=== PATIENT | male | born 1980 | race Caucasian/White ===

== ENCOUNTER 2022-10-22 10:57 | Outpatient (RCR) | payer OTHER, SELFPAY | END 2022-12-04 16:06 | disposition home or self-care (01) | LOC: PT 10:57 | PROVIDERS: PCP Podiatrist Foot & Ankle Surgery; Visit Provider Podiatrist Foot & Ankle Surgery | DX: M76.71 Peroneal tendinitis, right leg (principal); S86.311D Strain of muscle(s) and tendon(s) of peroneal muscle group at lower leg level, right leg, subsequent encounter; S93.491D Sprain of other ligament of right ankle, subsequent encounter | CPT/HCPCS: 20561; 97110; 97140 ==

== ENCOUNTER 2022-12-09 13:42 | Outpatient (OUT) | payer OTHER, SELFPAY ==
--- NOTE | 2022-12-09 13:46 | XR_ITS ---
The [address] [address] Patient Name: NELY KLEIN MRN: [id number] date: 1980 Sex: M Assigned Patient Location: [facility] Current Patient Location: [facility] Accession/Order Number: [id number] Exam Date: 12/09/2022 13:46 Report Date: 12/09/2022 14:28 At the request of: TRINY SOTO Procedure: XR ankle RT min 3V PROCEDURE: XR ankle RT min 3V DATE: 12/09/2022 12:46 PM CDT COMPARISONS: 06/16/2021 CLINICAL INDICATION: RIGHT ANKLE PAIN FINDINGS: There is no evidence of fractures or other acute osseous abnormalities. There is a 2 mm corticated ossific density distal to the medial malleolus likely related to old trauma or accessory ossicle. The ankle mortise is intact. No evidence of ankle joint effusion. XR/XR ankle RT min 3V IMPRESSION: Right ankle radiographs show no evidence of acute abnormalities. Electronically authenticated by: SINA TRIVEDI Date: 12/09/2022 14:28
--- NOTE | 2022-12-09 14:00 | XR_ITS ---
The [address] [address] Patient Name: NELY KLEIN MRN: [id number] date: 1980 Sex: M Assigned Patient Location: [facility] Current Patient Location: [facility] Accession/Order Number: [id number] Exam Date: 12/09/2022 14:00 Report Date: 12/09/2022 14:31 At the request of: TRINY SOTO Procedure: XR foot RT min 3V PROCEDURE: XR foot RT min 3V DATE: 12/09/2022 1:00 PM CDT COMPARISONS: Reference is made to right ankle radiographs done the same day and right ankle radiographs done on 06/16/2021. CLINICAL INDICATION: RIGHT FOOT PAIN FINDINGS: There is no evidence of fractures or other acute osseous abnormalities. There is spurring off the posterior os calcis at the attachment of the Achilles is a small spur off the posterior inferior os calcis There is some old deformity of the fifth proximal phalanx. There is slight soft tissue swelling about the foot and ankle. There is a marker over the lateral hindfoot. No definite abnormality seen in this area. There is a subtle 7 mm ossific density. This is of unclear etiology. It could represent an accessory ossicle. No radiopaque foreign bodies identified. XR/XR foot RT min 3V IMPRESSION: Right foot radiographs show no evidence of acute abnormalities. Electronically authenticated by: SINA TRIVEDI Date: 12/09/2022 14:31
== END 2022-12-09 13:43 | disposition home or self-care (01) ==
LOC: RAD 13:43
PROVIDERS: PCP Podiatrist Foot & Ankle Surgery; Visit Provider Podiatrist Foot & Ankle Surgery
DX: S93.491A Sprain of other ligament of right ankle, initial encounter (principal); M76.71 Peroneal tendinitis, right leg
CPT/HCPCS: 73610; 73630

== ENCOUNTER 2023-04-23 11:11 | Outpatient (OUT) | payer SELFPAY ==
--- NOTE | 2023-04-23 | XR_ITS ---
The [address] [address] Patient Name: NELY KLEIN MRN: [id number] date: 1980 Sex: M Assigned Patient Location: [facility] Current Patient Location: Accession/Order Number: [id number] Exam Date: 04/23/2023 11:17 Report Date: 04/24/2023 07:42 At the request of: TRINY SOTO Procedure: XR foot LT min 3V PROCEDURE: XR foot LT min 3V HISTORY: LEFT FOOT PAIN ; new left heel and lateral foot pain COMPARISON: None. FINDINGS: BONES:Prominent degenerative enthesophyte at Achilles tendon insertion into the calcaneus. Degenerative spurring along margin of posterior process of talus and posterior articular surface with the calcaneus. SOFT TISSUES:No visible soft tissue swelling. EFFUSION:None visible. OTHER: Negative. XR/XR foot LT min 3V IMPRESSION: 1. No appreciable acute findings to account for patient's symptoms. 2. Mild degenerative changes detailed above. Electronically authenticated by: CHRISTINE VELARDE Date: 04/24/2023 07:42
== END 2023-04-23 11:12 | disposition home or self-care (01) ==
LOC: RAD 11:11
PROVIDERS: Visit Provider Podiatrist Foot & Ankle Surgery
DX: M79.672 Pain in left foot (principal)
CPT/HCPCS: 73630

== ENCOUNTER 2023-07-05 16:21 | Outpatient (OUT) | payer OTHER, SELFPAY | END 2023-07-05 16:22 | disposition home or self-care (01) | LOC: SLEEP 16:22 | PROVIDERS: PCP Nurse Practitioner Family; Visit Provider Nurse Practitioner Family | DX: G47.33 Obstructive sleep apnea (adult) (pediatric) (principal) | CPT/HCPCS: 95806 ==

== ENCOUNTER 2023-07-20 11:15 | Outpatient (OUT) | payer OTHER, SELFPAY ==
--- NOTE | 2023-07-20 | XR_ITS ---
[address] [address] Patient Name: NELY KLEIN MRN: [id number] date: 1980 Sex: M Assigned Patient Location: Current Patient Location: Accession/Order Number: [id number] Exam Date: 07/20/2023 11:20 Report Date: 07/20/2023 12:09 At the request of: TRINY SOTO Procedure: XR ankle SHERIN min 3V EXAMINATION: XR ankle SHERIN min 3V, XR foot SHERIN min 3V HISTORY: BILATERAL ANKLE PAIN COMPARISON: 04/23/2023 FINDINGS: RIGHT FINDINGS: BONES: No acute fracture or dislocation. Bulky enthesopathic spurring of the calcaneus at the Achilles insertion. SOFT TISSUES: Mild bimalleolar soft tissue swelling OTHER: Negative. LEFT FINDINGS: BONES: No acute fracture or dislocation. Bulky enthesopathic spurring of the calcaneus at the Achilles insertion. Osteoarthritis posterior talocalcaneal facet SOFT TISSUES: Mild bimalleolar soft tissue swelling OTHER: Negative. XR/XR ankle SHERIN min 3V IMPRESSION: RIGHT CONCLUSION: Degenerative changes LEFT CONCLUSION: Degenerative changes Electronically authenticated by: DEBBIE OBREGON Date: 07/20/2023 12:09
--- NOTE | 2023-07-20 | XR_ITS ---
[address] [address] Patient Name: NELY KLEIN MRN: [id number] date: 1980 Sex: M Assigned Patient Location: Current Patient Location: Accession/Order Number: [id number] Exam Date: 07/20/2023 11:20 Report Date: 07/20/2023 12:09 At the request of: TRINY SOTO Procedure: XR foot SHERIN min 3V EXAMINATION: XR ankle SHERIN min 3V, XR foot SHERIN min 3V HISTORY: BILATERAL ANKLE PAIN COMPARISON: 04/23/2023 FINDINGS: RIGHT FINDINGS: BONES: No acute fracture or dislocation. Bulky enthesopathic spurring of the calcaneus at the Achilles insertion. SOFT TISSUES: Mild bimalleolar soft tissue swelling OTHER: Negative. LEFT FINDINGS: BONES: No acute fracture or dislocation. Bulky enthesopathic spurring of the calcaneus at the Achilles insertion. Osteoarthritis posterior talocalcaneal facet SOFT TISSUES: Mild bimalleolar soft tissue swelling OTHER: Negative. XR/XR foot SHERIN min 3V IMPRESSION: RIGHT CONCLUSION: Degenerative changes LEFT CONCLUSION: Degenerative changes Electronically authenticated by: DEBBIE OBREGON Date: 07/20/2023 12:09
== END 2023-07-20 11:16 | disposition home or self-care (01) ==
LOC: EC 11:15
PROVIDERS: PCP Nurse Practitioner Family; Visit Provider Podiatrist Foot & Ankle Surgery
DX: M76.71 Peroneal tendinitis, right leg (principal); M21.172 Varus deformity, not elsewhere classified, left ankle; M79.672 Pain in left foot; M79.671 Pain in right foot
CPT/HCPCS: 73610; 73630

== ENCOUNTER 2023-10-07 13:22 | Outpatient (OUT) | payer OTHER, SELFPAY ==
--- NOTE | 2023-10-07 13:30 | MR_ITS ---
The [address] [address] Patient Name: NELY KLEIN MRN: [id number] date: 1980 Sex: M Assigned Patient Location: MRI Current Patient Location: MRI Accession/Order Number: [id number] Exam Date: 10/07/2023 13:50 Report Date: 10/07/2023 15:40 At the request of: TRINY SOTO Procedure: MR ankle LT wo con MR ankle LT wo con, 10/07/2023 1:50 PM EDT INDICATION: Peroneal Tendon Rupture Left COMPARISON: X-ray of the bilateral ankles dated 07/20/2023 TECHNIQUE: Multiplanar and multisequential MR images of the were obtained without contrast . FINDINGS: Muscles and tendons: The flexor and extensor tendons and muscles are unremarkable. No abnormality of the peroneus brevis is noted. There is a longitudinal tear within the prognosis longus at the level of peroneal tubercle. There is thickening of the Achilles tendon is insertion to the calcaneus measuring 1.1 cm consistent with partial tear. Bone: There is no bone marrow edema. No osseus lesion is noted. Moderate degenerative changes in the posterior talocalcaneal joint are noted. Sinus Tarsi: No abnormality of sinus Tarsi is noted. Plantar fascia: The plantar fascia is unremarkable. Ligaments: The deep and superficial portions of deltoid are unremarkable. The lateral ligaments are unremarkable. The visualized portion of Lisfranc ligament is unremarkable. There is normal intra-articular joint effusion. No soft tissue abnormality is noted. MR/MR ankle LT wo con IMPRESSION: Longitudinal tear of the left peroneus longus at the level of peroneal tubercle. Low-grade partial tear of the distal Achilles tendon. Electronically authenticated by: MARIELY TIERNEY Date: 10/07/2023 15:40
== END 2023-10-07 13:23 | disposition home or self-care (01) ==
LOC: MRI 13:22
PROVIDERS: PCP Nurse Practitioner Family; Visit Provider Podiatrist Foot & Ankle Surgery
DX: S96.812A Strain of other specified muscles and tendons at ankle and foot level, left foot, initial encounter (principal)
CPT/HCPCS: 73721

== ENCOUNTER 2023-12-29 07:03 | Outpatient (RCR) | payer OTHER, SELFPAY | END 2024-01-18 12:20 | disposition home or self-care (01) | LOC: PT 07:03 | PROVIDERS: PCP Nurse Practitioner Family; Visit Provider Podiatrist Foot & Ankle Surgery | DX: M76.71 Peroneal tendinitis, right leg (principal); R26.2 Difficulty in walking, not elsewhere classified; M76.62 Achilles tendinitis, left leg; M77.32 Calcaneal spur, left foot; M77.52 Other enthesopathy of left foot and ankle | CPT/HCPCS: 97026; 97110; 97140; 97163 ==

== ENCOUNTER 2024-06-28 13:30 | Outpatient (OUT) | payer OTHER, SELFPAY ==
--- NOTE | 2024-06-28 13:35 | XR_ITS ---
The [address] [address] Patient Name: NELY KLEIN MRN: [id number] date: 1980 Sex: M Assigned Patient Location: [facility] Current Patient Location: [facility] Accession/Order Number: [id number] Exam Date: 06/28/2024 13:45 Report Date: 06/28/2024 16:09 At the request of: TRINY SOTO Procedure: XR foot SHERIN min 3V EXAMINATION: XR foot SHERIN min 3V, XR ankle SHERIN min 3V HISTORY: Bilateral Foot And Ankle Pain COMPARISON: No relevant comparison available. FINDINGS: RIGHT FINDINGS: BONES: Mild degenerative change of the first metatarsophalangeal joint. Prominent Achilles tendon degenerative enthesophyte. SOFT TISSUES: No visible soft tissue swelling. OTHER: Negative. LEFT FINDINGS: BONES: Prominent Achilles tendon degenerative enthesophyte. No fracture, dislocation, or significant degenerative joint disease. SOFT TISSUES: No visible soft tissue swelling. OTHER: Negative. XR/XR foot SHERIN min 3V IMPRESSION: RIGHT CONCLUSION: Prominent degenerative enthesophyte at Achilles tendon insertion into calcaneus. Mild degenerative changes the first metatarsophalangeal joint. Otherwise unremarkable foot and ankle. LEFT CONCLUSION: Prominent degenerative enthesophyte at Achilles tendon insertion into the calcaneus. Otherwise unremarkable foot and ankle. Electronically authenticated by: CHRISTINE VELARDE Date: 06/28/2024 16:09
--- NOTE | 2024-06-28 13:35 | XR_ITS ---
The [address] [address] Patient Name: NELY KLEIN MRN: [id number] date: 1980 Sex: M Assigned Patient Location: [facility] Current Patient Location: [facility] Accession/Order Number: [id number] Exam Date: 06/28/2024 13:45 Report Date: 06/28/2024 16:09 At the request of: TRINY SOTO Procedure: XR ankle SHERIN min 3V EXAMINATION: XR foot SHERIN min 3V, XR ankle SHERIN min 3V HISTORY: Bilateral Foot And Ankle Pain COMPARISON: No relevant comparison available. FINDINGS: RIGHT FINDINGS: BONES: Mild degenerative change of the first metatarsophalangeal joint. Prominent Achilles tendon degenerative enthesophyte. SOFT TISSUES: No visible soft tissue swelling. OTHER: Negative. LEFT FINDINGS: BONES: Prominent Achilles tendon degenerative enthesophyte. No fracture, dislocation, or significant degenerative joint disease. SOFT TISSUES: No visible soft tissue swelling. OTHER: Negative. XR/XR ankle SHERIN min 3V IMPRESSION: RIGHT CONCLUSION: Prominent degenerative enthesophyte at Achilles tendon insertion into calcaneus. Mild degenerative changes the first metatarsophalangeal joint. Otherwise unremarkable foot and ankle. LEFT CONCLUSION: Prominent degenerative enthesophyte at Achilles tendon insertion into the calcaneus. Otherwise unremarkable foot and ankle. Electronically authenticated by: CHRISTINE VELARDE Date: 06/28/2024 16:09
--- OUTSIDE RECORDS SUMMARY | 2024-06-28 13:44 | XMS_ITS | CCD ---
Author Organization [facility] Care Team Providers Care Loss Mitigation Specialist Name Role Phone FRANKY ., DR CORDOBA Primary Care Unavailable HEMEYER ., DR CORDOBA Admitting Unavailable HEMEYER ., DR CORDOBA Attending Unavailable HEMEYER ., DR CORDOBA Primary Care Unavailable HEMEYER ., DR CORDOBA Admitting Unavailable HEMEYER ., DR CORDOBA Attending Unavailable HEMEYER ., DR CORDOBA Consulting Unavailable ZIEBER, DR CHRISTINE Cid Consulting Unavailable HEMEYER ., DR CORDOBA Primary Care Unavailable HEMEYER ., DR CORDOBA Admitting Unavailable HEMEYER ., DR CORDOBA Attending Unavailable HEMEYER ., DR CORDOBA Consulting Unavailable TRINY SOTO Attending Unavailable HEMEYER ., DR CORDOBA Primary Care Unavailable TRINY SOTO Admitting Unavailable TRINY SOTO Admitting Unavailable HEMEYER ., DR CORDOBA Primary Care Unavailable TRINY SOTO Attending Unavailable HEMEYER ., DR CORDOBA Primary Care Unavailable HEMEYER ., DR CORDOBA Admitting Unavailable HEMEYER ., DR CORDOBA Attending Unavailable Margaret Lazo Unavailable [phone] Margaret Lazo CNP Primary Care Provider MARGARET LAZO Primary Care Unavailable BUBBA GUILLEN Attending Unavailable ERIKA VIERA Attending Unavailable Branden Garcia MD Primary Care Provider Allergies Allergy Classification Reported Allergen(s) Allergy Type Date of Onset Reaction(s) Facility (2 sources) Sulfamethoxazole / Trimethoprim Drug Allergy 1 [facility] Repository (10 sources) Sulfamethoxazole / Trimethoprim Drug Allergy 1 Itching, Unknown [facility] (1 source) Sulfamethoxazole / Trimethoprim; Translations: [SULFAMETHOXAZOLE-TR IMETHOPRIM] Drug Allergy 1 [facility] Repository (2 sources) Sulfamethoxazole Drug Allergy 4 Unknown Reaction [facility] (2 sources) Trimethoprim Drug Allergy 4 Unknown Reaction [facility] (3 sources) amLODIPine Drug Allergy 3 [facility] (3 sources) Metoprolol Drug Allergy 3 [facility] Medications Current Medications Medication Drug Class(es) Dates Sig (Normalized) Sig (Original) atorvastatin 80 mg oral tablet (12 sources) HMG-CoA Reductase Inhibitor Start: 11-26-2022 take 1 tablet by mouth in the morning atorvastatin (Lipitor) 80 MG tablet Indications: Mixed dyslipidemia (CMS/HCC) Take 1 tablet (80 mg) by mouth in the morning. 30 tablet 11/26/2022 Active cephalexin 500 mg oral capsule (1 source) Cephalosporin Antibacterial Start: 02-04-2023 End: 02-11-2023 take 1 capsule by mouth four times daily cephALEXin (KEFLEX) 500 MG capsule Indications: Laceration of palm, left, initial encounter Take 1 (one) capsule (500 mg total) by mouth 4 (four) times a day for 7 days . 28 capsule 0 02/04/2023 02/11/2023 Active diclofenac sodium 50 mg delayed release oral tablet (2 sources) Nonsteroidal Anti-inflammatory Drug Start: 08-31-2023 take 50 mg by mouth three times daily Diclofenac Sodium Active 50 MG PO Three times daily August 31, 2023 2:35pm Start: 08-11-2023 End: 08-31-2023 take 50 mg by mouth once daily Diclofenac Sodium Disco ntinued 50 MG PO Daily August 11, 2023 12:00am August 31, 2023 2:36pm escitalopram 20 mg oral tablet (2 sources) Serotonin Reuptake Inhibitor Start: 07-09-2023 take 1 tablet by mouth once daily Escitalopram Oxalate (Lexapro) 20 mg tablet Active 20 MG PO Daily July 09, 2023 1:00am gabapentin 300 mg oral capsule (4 sources) Anti-epileptic Agent Start: 08-31-2023 take 300 mg by mouth three times daily Gabapentin Active 300 MG PO Three times daily 90 August 31, 2023 2:47pm Start: 08-10-2023 End: 08-31-2023 take 200 mg by mouth twice daily Gabapentin Discontinued 200 MG PO Twice daily 120 August 10, 2023 3:41pm August 31, 2023 2:58pm Start: 07-09-2023 End: 08-10-2023 take 100 mg by mouth twice daily Gabapentin Discontinued 100 MG PO Twice daily 60 30 July 09, 2023 1:00am August 10, 2023 3:42pm losartan potassium 100 mg oral tablet (12 sources) Angiotensin 2 Receptor Whit Start: 11-26-2022 take 1 tablet by mouth in the morning losartan (Cozaar) 100 MG tablet Indications: Primary hypertension (CMS/HCC) Take 1 tablet (100 mg) by mouth in the morning. 30 tablet 11/26/2022 Active meloxicam 15 mg oral tablet (15 sources) Nonsteroidal Anti-inflammatory Drug Start: 11-26-2022 End: 08-11-2023 take 1 tablet by mouth once daily meloxicam (Mobic) 15 MG tablet Indications: Spondylosis, unspecified TAKE 1 TABLET BY MOUTH EVERY DAY FOR 30 DAYS 30 tablet 2 11/26/2022 Active paxlovid (300/100) 20 x 150 mg & 10 x 100mg tablet therapy pack (2 sources) Start: 05-04-2023 Paxlovid (300/100) 20 x 150 MG & 10 x 100MG as directed Orally bid for 5 days Apr, Active verapamil hydrochloride 240 mg extended release oral tablet (12 sources) Calcium Channel Whit Start: 11-26-2022 take 1 tablet by mouth at bedtime verapamil SR (Calan SR) 240 MG ER tablet Indications: Primary hypertension (CMS/HCC) Take 1 tablet (240 mg) by mouth at bedtime. 30 tablet 11/26/2022 Active take 1 tablet by hanna once daily at bedtime verapamil sr (CALAN-SR) 180 MG 12 or 24h r tablet Take 1 (one) tablet (180 mg total) by mouth every night at bedtime . 0 Active Completed/Discontinued Medications Medication Drug Class(es) Dates Sig (Normalized) Sig (Original) pregabalin 75 mg oral capsule (9 sources) Start: 07-09-2023 End: 07-09-2023 take 75 mg by mouth twice daily Pregabalin Discontinued 75 MG PO Twice daily July 09, 2023 1:00am July 09, 2023 10:09am take [address] [facility] every twelve hours Lyrica 75 MG 1 capsule Orally Twice a da y Active take 1 capsule by mo uth once daily at bedtime pregabalin (Lyrica) 25 MG capsule Take 1 (one) capsule (25 mg total) by mouth every night at bedtime . 0 Active take 1 capsule by mo uth every twelve hours Lyrica 50 MG 1 capsule Orally Twice a da y Active traMADol hydrochloride 50 mg oral tablet (1 source) Opioid Agonist Start: 08-11-2023 End: 08-31-2023 take 50 mg by mouth every six hours Tramadol Discontinued 50 MG PO Every 6 hours August 11, 2023 12:00am August 31, 2023 2:36pm Problems Active Problems Problem Classification Problem Date Documented Da te Episodic/Chronic Abdominal pain (6 sources) Abdominal pain; Translations: [Unspecified abdominal pain] Episodic Chronic kidney disease (1 source) Chronic kidney disease, unspecified; Translations: [CHRONIC KIDNEY DISEASE UNSPECIFIED] Onset: 05-23-2022 Chronic Diabetes mellitus with complications (2 sources) Type 2 diabetes mellitus with hyperglycemia; Translations: [Type 2 diabetes mellitus with diabetic chronic kidney disease] Onset: 05-23-2022 Chronic Disorders of lipid metabolism (16 sources) Mixed hyperlipidemia; Translations: [Mixed hyperlipidemia] Onset: 05-20-2022 Chronic Essential hypertension (12 sources) Essential hypertension; Translations: [Essential (primary) hypertension] Chronic Hypertension with complications and secondary hypertension (1 source) Hypertensive chronic kidney disease with stage 1 through stage 4 chronic kidney disease, or unspecified chronic kidney disease; Translations: [HTN CKD W/STAGE 1-4 CKD/UNS CKD] Onset: 05-23-2022 Chronic Mood disorders (10 sources) Moderate major depression, single episode; Translations: [Major depressive disorder, single episode, moderate] Chronic Nausea and vomiting (6 sources) Nausea and vomiting; Translations: [Nausea with vomiting, unspecified] Episodic Open wounds of extremities (3 sources) Laceration of hand; Translations: [Laceration without foreign body of left hand, initial encounter] Onset: 02-04-2023 02-04-2023 Episodic Osteoarthritis (20 sources) Osteoarthritis of joint of left wrist; Translations: [Primary osteoarthritis, left wrist] Chronic Other connective tissue disease (1 source) Peroneal tendinitis, right leg; Translations: [PERONEAL TENDINITIS RIGHT LEG] Onset: 10-13-2022 Episodic Other gastrointestinal disorders (6 sources) Diarrhea; Translations: [Diarrhea, unspecified] Episodic Other nervous system disorders (2 sources) Chronic pain; Translations: [Other chronic pain] 07-09-2023 Chronic Other nervous system disorders (2 sources) Neuropathy; Translations: [Polyneuropathy, unspecified] 07-09-2023 Chronic Other nervous system disorders (2 sources) Other chronic pain; Translations: [Other chronic pain] 07-09-2023 Chronic Other nervous system disorders (2 sources) Polyneuropathy, unspecified; Translations: [Mononeuritis of unspecified site] 07-09-2023 Chronic Other nutritional; endocrine; and metabolic disorders (2 sources) Severe obesity; Translations: [Morbid (severe) obesity due to excess calories] 01-27-2024 Chronic Residual codes; unclassified (10 sources) Obstructive sleep apnea syndrome; Translations: [Obstructive sleep apnea (adult) (pediatric)] 07-05-2023 Chronic Residual codes; unclassified (3 sources) Obstructive sleep apnea (adult) (pediatric); Translations: [Obstructive sleep apnea (adult)(pediatric)] Chronic Residual codes; unclassified (2 sources) Hypersomnia; Translations: [Hypersomnia, unspecified] 01-27-2024 Chronic Sprains and strains (5 sources) Sprain of other ligament of right ankle, subsequent encounter; Translations: [Strain of muscle(s) and tendon(s) of peroneal muscle group at lower leg level, right leg, subsequent encounter] Onset: 09-18-2022 Episodic Substance-related disorders (11 sources) Smoker; Translations: [Nicotine dependence, unspecified, uncomplicated] Chronic Past or Other Problems Problem Classification Problem Date Documented Da te Episodic/Chronic Other connective tissue disease (4 sources) Pain in left hand; Translations: [PAIN IN LEFT HAND] Onset: 06-15-2022 Episodic Other injuries and conditions due to external causes (1 source) Unspecified injury of left wrist, hand and finger(s), initial encounter; Translations: [UNS INJ LT WRIST HAND FINGERS INIT] Onset: 06-17-2022 Episodic Other lower respiratory disease (2 sources) Hypoxia; Translations: [Hypoxemia] 01-27-2024 Episodic Other lower respiratory disease (2 sources) Snoring; Translations: [Snoring] 01-27-2024 Episodic Residual codes; unclassified (2 sources) Sleep deprivation; Translations: [Sleep deprivation] 01-27-2024 Episodic Residual codes; unclassified (2 sources) Inadequate sleep hygiene; Translations: [Inadequate sleep hygiene] 01-27-2024 Episodic Viral infection (1 source) COVID-19 Results Test Name Value Interpretation Reference Range Facility Laceration repairon 02-05-20 23 Bubba Guillen CNP 02/04/2023 12:05 PM Wound extent: Laceration repair Date/Time: 02/04/2023 11:38 AM Performed by: Bubba Guillen CNP Authorized by: Bubba Guillen CNP Verbal consent: obtained Written consent: not obtained Reason consent not obtained: emergency Consent given by: patient Relevant documents: Relevent documents present and verified. Medical history, medications, allergies and physical assessment reviewed/completed Test results: test results available and properly labeled Site: site marked by physician or proceduralist who is privileged and credentialed to perform procedure Required items: required blood products, implants, devices, and special equipment available Patient identity confirmed: verified patient name and and verbally with patient Physician or proceduralist has discussed critical or nonroutine steps, procedure duration and anticipated blood loss: Yes All team members agree to proceed: Yes Body area: upper extremity Location details: left hand Laceration length: 1.1 cm Contamination: The wound is contaminated. Foreign bodies: no foreign bodies Tendon involvement: none Nerve involvement: none Vascular damage: no Anesthesia: local infiltration Anesthesia: Local Anesthetic: lidocaine 1% without epinephrine Anesthetic total: 3 mL Patient sedated: no Repair type: simple Preparation: Patient was prepped and draped in the usual sterile fashion. Irrigation solution: saline Irrigation method: syringe Amount of cleaning: extensive Hemostasis achieved with: direct pressure no foreign body, no muscle damage, no nerve damage, no tendon damage, no underlying fracture and no vascular damage Debridement: none Degree of undermining: none Skin closure: 4-0 ethilon Number of sutures: 4 Technique: simple interrupted Approximation: close Approximation difficulty: simple Dressinx4 sterile gauze Patient tolerance: patient tolerated the procedure well with no immediate complications [facility] GLYCOHEMOGLOBIN A1Con 2021 ADA RECOMMENDATION SEE BELOW Normal [facility] Comment on above: Result Comment: ADA RECOMMENDED LIMIT 4.0 - 6.0 ADA THERAPEUTIC TARGET < 7.0 ACTION SUGGESTED > 7.0 Performed By: #### A 1C #### [facility] [address] [address] [address] Taylor Ellis Glucose [Mass/Vol] 126 mg/dL Normal [facility] Comment on above: Performed By: #### A 1C #### [facility] [address] [address] [address] Taylor Ellis HbA1c (Bld) [Mass fraction] 6.0 % Normal 4.5-6.2 [facility] Comment on above: Performed By: #### A 1C #### [facility] [address] [place] [address] Dr. Taylor Ellis LIPID PROFILEon 05-20-2022 CHOL-HDL RATIO NORM SEE BELOW Normal [facility] Comment on above: Result Comment: 3.3 - 4.4 LOW RISK 4.4 - 7.1 AVERAGE RISK 7.1 - 11.0 MODERATE RISK >11.0 HIGH RISK Performed By: #### C MP, LIPID #### [facility] [address] [place] [address] Dr. Taylor Ellis Cholesterol [Mass/Vol] 118 mg/dL Normal <=200 [facility] Comment on above: Performed By: #### C MP, LIPID #### [facility] [address] [place] [address] Dr. Taylor Ellis Cholesterol in HDL [Mass/Vol] 28 mg/dL Critically low 40-60 [facility] Comment on above: Performed By: #### C MP, LIPID #### [facility] [address] [address] [address] Taylor Ellis Cholesterol in LDL [Mass/Vol] 45.4 mg/dL Normal [facility] Comment on above: Performed By: #### C MP, LIPID #### [facility] [address] [place] [address] Dr. Taylor Ellis Cholesterol.total/C holesterol in HDL [Mass ratio] 4.2 {ratio} Normal [facility] Comment on above: Performed By: #### C MP, LIPID #### [facility] [address] [place] [address] Dr. Taylor Ellis HDL NORMAL > or = 60 mg/dl - LO W CARDIOVASCULAR RISK <40 mg/dl - HIGH CARDIOVASCULAR RISK Normal [facility] Comment on above: Performed By: #### C MP, LIPID #### [facility] [address] [address] [address] Taylor Ellis LDL CALC NORMAL SEE BELOW Normal [facility] Comment on above: Result Comment: <100 mg/dl OPTIMAL 100 - 129 mg/dl NEAR OR ABOVE OPTIMAL 130 - 159 mg/dl BORDERLINE HIGH 160 - 189 mg/dl HIGH >190 mg/dl VERY HIGH Performed By: #### C MP, LIPID #### [facility] [address] [address] [address] Taylor Ellis Triglyceride [Mass/Vol] 223 mg/dL Critically high <=150 [facility] Comment on above: Performed By: #### C MP, LIPID #### [facility] [address] [address] [address] Taylor Ellis VLDL CALC 44.6 mg/dL Normal [facility] Comment on above: Performed By: #### C MP, LIPID #### [facility] [address] [address] [address] Taylor Ellis PROF 14(COMP METB)on 05-20- 022 Albumin [Mass/Vol] 4.2 g/dL Normal 3.4-5.0 [facility] Comment on above: Performed By: #### C MP, LIPID #### [facility] [address] [address] [address] Taylor Ellis Albumin/Globulin [Mass ratio] 1.2 {ratio} Normal [facility] Comment on above: Performed By: #### C MP, LIPID #### [facility] [address] [address] [address] Taylor Ellis ALP [Catalytic activity/Vol] 45 U/L Critically low 46-116 [facility] Comment on above: Performed By: #### C MP, LIPID #### [facility] [address] [address] [address] Taylor Ellis ALT [Catalytic activity/Vol] 65 U/L Critically high 16-63 [facility] Comment on above: Performed By: #### C MP, LIPID #### [facility] [address] [address] [address] Taylor Ellis Anion gap [Moles/Vol] 9.7 mmol/L Normal [facility] Comment on above: Performed By: #### C MP, LIPID #### [facility] [address] [address] [address] Taylor Ellis AST [Catalytic activity/Vol] 36 U/L Normal 15-37 [facility] Comment on above: Performed By: #### C MP, LIPID #### [facility] [address] [address] [address] Taylor Ellis Bilirubin [Mass/Vol] 0.6 mg/dL Normal 0.2-1.0 [facility] Comment on above: Performed By: #### C MP, LIPID #### [facility] [address] [address] [address] Taylor Ellis Calcium [Mass/Vol] 9.0 mg/dL Normal 8.5-10.1 [facility] Comment on above: Performed By: #### C MP, LIPID #### [facility] [address] [address] [address] Taylor Ellis Chloride [Moles/Vol] 101 mmol/L Normal 98-107 [facility] Comment on above: Performed By: #### C MP, LIPID #### [facility] [address] [address] [address] Taylor Ellis CO2 [Moles/Vol] 31.2 mmol/L Normal 21.0-32.0 [facility] Comment on above: Performed By: #### C MP, LIPID #### [facility] [address] [address] [address] Taylor Ellis Creatinine [Mass/Vol] 0.93 mg/dL Normal 0.70-1.30 [facility] Comment on above: Performed By: #### C MP, LIPID #### [facility] [address] [address] [address] Taylor Ellis EGFR-AF SYRIAN >60 Normal >=60 [facility] Comment on above: Performed By: #### C MP, LIPID #### [facility] [address] [address] [address] Taylor Ellis EGFR-NON AF SYRIAN >60 Normal >=60 [facility] Comment on above: Performed By: #### C MP, LIPID #### [facility] [address] [address] [address] Taylor Ellis Globulin (S) [Mass/Vol] 3.4 g/dL Normal [facility] Comment on above: Performed By: #### C MP, LIPID #### [facility] [address] [address] [address] Taylor Ellis Glucose [Mass/Vol] 89 mg/dL Normal 74-106 [facility] Comment on above: Performed By: #### C MP, LIPID #### [facility] [address] [place] [address] Dr. Taylor Ellis Potassium [Moles/Vol] 3.9 mmol/L Normal 3.5-5.1 [facility] Comment on above: Performed By: #### C MP, LIPID #### [facility] [address] [place] [address] Dr. Taylor Ellis Protein [Mass/Vol] 7.6 g/dL Normal 6.4-8.2 [facility] Comment on above: Performed By: #### C MP, LIPID #### [facility] [address] [place] [address] Dr. Taylor Ellis Sodium [Moles/Vol] 138 mmol/L Normal 136-145 [facility] Comment on above: Performed By: #### C MP, LIPID #### [facility] [address] [address] [address] Taylor Ellis Urea nitrogen [Mass/Vol] 16.0 mg/dL Normal 7.0-18.0 [facility] Comment on above: Performed By: #### C MP, LIPID #### [facility] [address] [address] [address] Taylor Ellis Urea nitrogen/Creatinine [Mass ratio] 17.2 mg/mg Normal [facility] Comment on above: Performed By: #### C MP, LIPID #### [facility] [address], [place] [address] Dr. Taylor Ellis [employer]son 01-29-2021 Forms [id number]: 127 Normal [facility] RAD - Ultrasound Reporton RAD - Ultrasound Report [id number]: 127 Normal [facility] RAD - Ultrasound Reporton RAD - Ultrasound Report [id number]:1 27 Normal [facility] RAD - Ultrasound Reporton RAD - Ultrasound Report [id number]: 127 Normal [facility] Provider [place] [facility] [place] [facility] Letter [facility] [place] November 22, 2020 Adalid Wilkins M.D. [address] [place] [address] Re: OSMANY BYERSAN Date of : 1980 Thank you for your referral of Osmany Cabarrus who was seen on consultation on 11/19/2020 for left axilla swollen lymph node. Testing has been ordered for further evaluation. I have enclosed my consultation note for your review. I will be happy to follow Osmany. Sincerely, Epifanio Johnson MD General Surgery Normal [facility] Ambulatory Clinical Summaryo n 11-19-2020 Ambulatory Clinical Summary {[id number] }[id number] Normal [facility] Physician Referralon 021 Physician Referral [id number]: 127 Normal [facility] Surgical Pathologyon 05-19-2019 [facility] Name OSMANY ARCE Pathologist: SOLITARIO LONDON MD Date of Procedure: 05/19/2019 Date Received: 05/19/2019 Date Reported 05/22/2019 Submitting Physician: SUSAN ALMANZA MD Location: [facility] Surg Other External # FINAL DIAGNOSIS A. LEFT VAS DEFERENS: --SEGMENT OF VAS DEFERENS WITH AN INTACT AND COMPLETE LUMEN. B. RIGHT VAS DEFERENS: --SEGMENT OF VAS DEFERENS WITH AN INTACT AND COMPLETE LUMEN. Electronically Signed Out By SOLITARIO LONDON MD/MRKianna By the signature on this report, the individual or group listed as making the Final Interpretation/Diagnosis certifies that they have reviewed this case. Clinical History: Elective sterilization Specimens Submitted As: A: LEFT VAS DEFERENS B: RIGHT VAS DEFERENS Gross Description: A: Received in formalin, labeled with the patient's name, hospital number, and A , is tubular segment of gutierrez-white soft tissue measuring 2.2 x 0.3 x 0.3 cm. A pin point lumen is present. The specimen is entirely submitted in one cassette. [facility] Gross dissection performed at: [facility] Department of Pathology [address] [place] [phone] B: Received in formalin, labeled with the patient's name, hospital number, and B , is tubular segment of gutierrez-white soft tissue measuring 1.5 x 0.3 x 0.3 cm. A pin point lumen is present. The specimen is entirely submitted in one cassette. [facility] Gross dissection performed at: [facility] Department of Pathology [address] [place] [id number] [facility]/05/19/2019 Normal [facility] Comment on above: Performed By: #### G SP #### [facility] [address] [place] [address] History and Physical - Surge ry > 30 dayson 05-19-2019 History and Physical - Surgery > 30 days History of Present Illness: History Present Illness: Reason for surgery: elective sterilization HPI: Here for vasectomy today. No new questions or concerns PMH: HTN MAIKOL Allergies: Allergies: No Known Allergies: Home Medication Review: Home Medications Reviewed: yes Impression/Procedure: Impression and Planned Procedure: Bilateral vasectomy Review of Systems: Review of Systems: Constitutional: NEGATIVE: Fever, Chills Eyes: NEGATIVE: Drainage Respiratory: NEGATIVE: Dry Cough, Productive Cough Cardiac: NEGATIVE: Chest Pain Gastrointestinal: NEGATIVE: Nausea, Vomiting, Diarrhea Genitourinary: NEGATIVE: Dysuria Musculoskeletal: NEGATIVE: Pain Neurological: NEGATIVE: Dizziness, Confusion, Headache Psychiatric: NEGATIVE: Anxiety Skin: NEGATIVE: Rash Vital Signs: Temperature C: 37.1 degrees C Temperature F: 98.7 degrees F Heart Rate: 73 beats per minute Respiratory Rate: 18 breath per minute Blood Pressure Systolic: 138 mm/Hg Blood Pressure Diastolic: 85 mm/Hg Physical Exam: Constitutional: nad, aao Head/Neck: NCAT Respiratory/Thorax: breathing comfortably on ra Cardiovascular: rrr Skin: warm, well perfused Signatures/Attestation/C ertification: Note Completion: Attending Provider Inpatient Certification StatementObservation patient/other outpatient visits Electronic Signatures: Susan Almanza) (Signed 19-May-2019 07:05) Authored: History of Present Illness, Allergies, Home Medication Review, Impression/Procedure, Review of Systems, Physical Exam, Signatures/Attestation/C ertification Last Updated: 19-May-2019 07:05 by Susan Almanza) [facility] Operative Reports - [facility] 05-19-2019 Operative Reports - [facility] [id number] [place] [address] Patient Name: GABRIEL. Ivette ARCE : 1980 Date of Service: 05/19/2019 Patient Location: [place] [address] Patient Type: O Surgeon: Susan Almanza MD Report Type: Operative Reports ATTENDING PHYSICIAN: Dr. Susan Almanza. CHIEF OF PLANNING: None. PREOPERATIVE DIAGNOSES: 1. Elective sterilization. 2. Encounter for vasectomy. POSTOPERATIVE DIAGNOSES: 1. Elective sterilization. 2. Encounter for vasectomy. PROCEDURES: Bilateral vasectomy. ANESTHESIA: Monitored anesthesia care. COMPLICATIONS: None. IV FLUIDS: Per Anesthesia report. ESTIMATED BLOOD LOSS: Less than 10 cc. DRAINS: None. FINDINGS: Normal bilateral vas. INDICATIONS: The patient is a 39-year-old gentleman who presented to us for consideration for a bilateral vasectomy for elective sterilization. After discussing different management options and the risks and benefits of the procedure, he elected to proceed. Informed consent was obtained. OPERATION AND PROCEDURE: The patient was taken back to the operating room, placed on the operating room table in supine position. Anesthesia was induced, appropriate antibiotics were administered, and time-out was performed. The patient was then prepped and draped in a sterile standard fashion for bilateral vasectomy. We began 1st on the left side by isolating the vas using a 3-finger technique in the left hemiscrotum. We then made a puncture incision for no scalpel technique, using a pair of sharp hemostats directly overlying the vas. We then extracted the vas from the scrotum using a pair of ring vaso clamps. The walker-vasal tissue was then cleaned off to further isolate the vas deferens using electrocautery. Once the vas was isolated completely, we then placed a mosquito clamp on the proximal and distal ends of the vasectomy site. We then sharply excised 1 cm segment of vas and this was sent off for pathological analysis. We then cauterized the proximal and distal ends of the vasectomy site. We then tied off the proximal and distal ends using 3-0 chromic sutures. We then repeated the above steps to perform a vasectomy on the right side as well. We used electrocautery and small clips to control any areas of bleeding. At the end of the procedure, hemostasis was excellent. We did perform local and walker-vasal anesthesia using 1% lidocaine and 0.5% Marcaine. The local anesthetic was injected within the walker-vasal tissue and subcutaneously at the incision sites. A total of 17 cc of local anesthesia was used. We then closed the bilateral skin incisions using 4-0 chromic suture in interrupted fashion. Bacitracin was applied to the wounds. This concluded the procedure. The patient tolerated the procedure without complications. The patient was awoken from anesthesia in stable condition and transferred to the PACU. FOLLOWUP: The patient will follow up in 2 to 3 months' time for semen analysis. Susan Almanza MD EST TT: 05/22/2019 01:43 AM EST DICTATION NUMBER: [id number] [facility] JOB NUMBER: [id number] CC: Adalid Wilkins MD, [id number] Electronic Signatures: Susan Almanza) (Signed on 24-May-2019 17:12) Authored Unsigned, Draft (SYS GENERATED) (Entered on 22-May-2019 01:43) Entered Last Updated: 24-May-2019 17:12 by Susan Almanza) [facility] Patient Profile - Preop v2on 05-19-2019 Patient Profile - Preop v2 Profile: Initial Info: How to be Addressedgabriel Spoken Language PreferredEnglish Are you currently using the Personal Electronic Health Record or MYCAREno Are you interested in learning more about MYCARE for the management of your healthyes, information provided Stated Reason for Admissionvasectomy Primary Contact Name and NumberAngela Patient Belongingsremains with patient Medications Brought to Hospitalyes General Health: Weight in kg145.1 kilogram(s) Weight in ulx298 pound(s) Weight Methodstated Height in cm187.9 centimeter(s) Height in feet6 feet Height in inches2 inch(es) Height Methodstated BMI (kg/m2)41.097 square meter Patient or Family Member Reaction to Anesthesiano previous reaction Health Mgmt: Symptoms/Conditions Managed at Homecardiovascular; respiratory Barriers to Managing Healthnone Relationship/Environ: Resource/Environmental Concernsnone Substance: Current or Former Substance Use never: Cigarette/Tobacco, e-Cigarette/Vaping, Alcohol, Street Drugs Risk Screens: Advance Directive/DNRyes Advance Directive typeDurable Power of Interior Decorator Painting for Healthcare Durable Power of Interior [employer]or[employer]ting AvailabilityDPOA not available now During the past month, have you often been bothered by feeling down, depressed or hopelessno During the past month, have you often had little interest or pleasure in doing thingsno Have you had any thoughts of harming yourselfno Have you had any thoughts of harming anyone elseno Are you or have you been threatened or abused physically,emotionally or sexually abused by anyoneno Do you feel UNSAFE going back to the place you are livingno Patient is Able to be Assessed for Learningyes Factors Influencing Readiness to Learninterest in learning Factors that Impact Ability to Learnnone Devices/Methods Used to Communicatenone Learning Preferenceswritten material; verbal instruction Cultural Considerationsnone Developmental Considerationsnone Alevism Considerationsnone Other learner availableno [place] RiskPatient location auto qualifies him/her for HIGH RISK. Are there any cultural, spiritual, mandaeism practices/values/needs that are important for us to knowno Pain Scalenumerical 0-10 Pain Scale Educationteaching provided Current Pain Level0 = None Acceptable Pain Level0 = None Chronic Painno Information Review: Allergies, Home Meds and Significant Events have been Reviewed and Verified with Patient/Familyyes Allergy, Intolerance, Adverse Event: Allergies: No Known Allergies: Active Significant Events: 19-May-2019 sleep apnea with CPAP: Past Medical History, Active 19-May-2019 HTN: Past Medical History, Active Electronic Signatures: Susanne Rogel) (Signed 19-May-2019 06:56) Authored: Profile, Additional Information Last Updated: 19-May-2019 06:56 by Susanne Rogel) Normal [facility] Preop Checkliston 05-19-2019 Preop Checklist Preop Checklist: Preop Checklist: Arrival [id number] Arrival Time06:29 Procedure Typevasectomy Temperature C37.1 degrees C Temperature F98.7 degrees F Heart Rate73 beats per minute Respiratory Rate18 breath per minute Blood Pressure Ezlbfcbb915 mm/Hg Blood Pressure Bavmlvbua13 mm/Hg NPO [id number] 21:00 ID Band Onyes Allergy Bandno known allergies Consent Signedyes H&P Completepending Anesthesia Assessment Completedpending EKG Performednot ordered Chest X-Ray Performednot ordered HCG Urine TestN/A SCD's Appliedyes Denturesnot applicable Prostheticsnot applicable Hearing Aidsnot applicable Valuables Securedplaced in locker in patient bag Glasses / Contactsleft in patient room contacts wearing Cardiovascular Assessment: Extremitieswarm Respiratory Assessment: Respirationsunlabored regular Neurological Assessment: Level of Consciousnessalert, oriented Mobilitymoves all extremities Able to Express Selfyes Age Appropriateyes Emotional Statuscalm Preop Education: Surgical Site Infection Preventionyes Pain Scales and Managementyes Language / Communication: Language / CommunicationEnglish Electronic Signatures: Susanne Rogel) (Signed 19-May-2019 06:59) Authored: Preop Checklist Last Updated: 19-May-2019 06:59 by Susanne Rogel) Normal [facility] Vital Signs Date Time Vital Sign Value Performing Clinician Facility 01-27-2024 12:44-0400 Body height 190.5 cm Erika Viera DO Work Phone: [facility] 01-27-2024 12:44-0400 Body mass index (BMI) [Ratio] 50 kg/m2 Erika Asif DO Work Phone: [facility] 01-27-2024 12:44-0400 Body weight 181.44 kg Erika Asif DO Work Phone: [facility] 01-27-2024 12:44-0400 Diastolic blood pressure 88 mm[Hg] Erika Asif DO Work Phone: [facility] 01-27-2024 12:44-0400 Heart rate 88 /min Erika Asif DO Work Phone: [facility] 01-27-2024 12:44-0400 SaO2% (BldA) [Mass fraction] 97 % Erika Asif DO Work Phone: [facility] 01-27-2024 12:44-0400 Systolic blood pressure 136 mm[Hg] Erika Asif DO Work Phone: [facility] 08-31-2023 14:32-0400 Body height 190.5 cm [facility] 08-31-2023 14:32-0400 Body mass index (BMI) [Ratio] 46.1 kg/m2 [facility] 08-31-2023 14:32-0400 Body weight 167.37 kg [facility] 08-31-2023 14:32-0400 Diastolic blood pressure 86 mm[Hg] [facility] 08-31-2023 14:32-0400 Heart rate 74 /min [facility] 08-31-2023 14:32-0400 SaO2% (BldA) [Mass fraction] 98 % [facility] 08-31-2023 14:32-0400 Systolic blood pressure 144 mm[Hg] [facility] 07-09-2023 09:03-0500 Body height 190.5 cm [facility] 07-09-2023 09:03-0500 Body mass index (BMI) [Ratio] 46.6 kg/m2 [facility] 07-09-2023 09:03-0500 Body weight 169.18 kg [facility] 07-09-2023 09:03-0500 Diastolic blood pressure 80 mm[Hg] [facility] 07-09-2023 09:03-0500 Heart rate 97 /min [facility] 07-09-2023 09:03-0500 SaO2% (BldA) [Mass fraction] 95 % [facility] 07-09-2023 09:03-0500 Systolic blood pressure 124 mm[Hg] [facility] 02-19-2023 09:30-0400 Body height Margaret Lazo Other [facility] [employer] Other 02-19-2023 09:30-0400 Body mass index (BMI) [Ratio] 46.62 kg/m2 Margaret Lazo Other [employer] Other 02-19-2023 09:30-0400 Body weight 169.19 kg Margaret Lazo Other [employer] Other 02-19-2023 09:30-0400 Diastolic blood pressure 76 mm[Hg] Margaret Lazo Other [employer] Other 02-19-2023 09:30-0400 SaO2% (BldA) [Mass fraction] 97 % Margaret Lazo Other [employer] Other 02-19-2023 09:30-0400 Systolic blood pressure 132 mm[Hg] Margaret Lazo Other [employer] Other 02-04-2023 11:39-0400 Diastolic blood pressure 85 mm[Hg] Bubba Guillen SILK SNAPPER Work Phone: [facility] 02-04-2023 11:39-0400 Systolic blood pressure 130 mm[Hg] Bubba Guillen SILK SNAPPER Work Phone: [facility] 02-04-2023 11:01-0400 Body height 193 cm Bubba Guillen CNP Work Phone: [facility] 02-04-2023 11:01-0400 Body mass index (BMI) [Ratio] 46.41 kg/m2 Bubba Guillen CNP Work Phone: [facility] 02-04-2023 11:01-0400 Body temperature 97.2 [degF] Bubba Guillen CNP Work Phone: [facility] 02-04-2023 11:01-0400 Body weight 172.96 kg Bubba Guillen CNP Work Phone: [facility] 02-04-2023 11:01-0400 Heart rate 74 /min Bubba Guillen CNP Work Phone: [facility] 02-04-2023 11:01-0400 Respiratory rate 17 /min Bubba Guillen CNP Work Phone: [facility] 02-04-2023 11:01-0400 SaO2% (BldA) [Mass fraction] 95 % Bubba Guillen CNP Work Phone: [facility] 12-25-2022 08:30-0400 Body height Margaret Lazo Other [employer] Other 12-25-2022 08:30-0400 Body mass index (BMI) [Ratio] 46.24 kg/m2 Margaret Lazo Other [employer] Other 12-25-2022 08:30-0400 Body weight 167.83 kg Margaret Lazo Other [employer] Other 12-25-2022 08:30-0400 Diastolic blood pressure 80 mm[Hg] Margaret Lazo Other [employer] Other 12-25-2022 08:30-0400 Systolic blood pressure 128 mm[Hg] Margaret Lazo Other [employer] Other Encounters Encounter Date Encounter Type Care Provider Facility Start: 01-27-2024 End: 01-27-2024 Bamboo flowsheet Erika Viera DO Work Phone: [facility] Start: 01-27-2024 End: 01-27-2024 Bamboo flowsheet Erika Asif DO Work Phone: [facility] Start: 01-27-2024 End: 01-27-2024 Office consultation new/estab patient 60 min Erika Viera DO Work Phone: [facility] Comment on above: MAIKOL (obstructive sle ep apnea); Hypoxia; Sleep deprivation; Inadequate sleep hygiene; Class 3 severe obesity due to excess calories with body mass index (BMI) of 50.0 to 59.9 in adult, unspecified whether serious comorbidity present ([facility]); Hypersomnia; Snoring Start: 01-27-2024 End: 01-27-2024 ambulatory ERIKA VIERA Not Available Start: 08-31-2023 End: 08-31-2023 ambulatory [facility] Work Phone: Start: 08-31-2023 End: 08-31-2023 Patient encounter procedure [facility] Work Phone: Start: 07-09-2023 End: 07-09-2023 ambulatory [facility] Work Phone: Start: 07-09-2023 End: 07-09-2023 Patient encounter procedure [facility] Work Phone: Start: 07-05-2023 End: 07-05-2023 ambulatory Margaret Lazo Other [employer] Other Start: 07-05-2023 Telephone encounter Margaret Bermudez her [facility] Start: 06-25-2023 End: 06-25-2023 Patient encounter procedure [facility]- Start: 05-28-2023 End: 05-28-2023 ambulatory Margaret Violet Other [employer] Other Start: 05-28-2023 Telephone encounter Margaret Albaradojuanis her [facility] Start: 05-04-2023 End: 05-04-2023 ambulatory Margaret Lazo Other [employer] Other Start: 05-04-2023 Office outpatient vi sit 15 minutes Margaret Lazo [facility] Start: 05-04-2023 Patient encounter procedure [facility]- Start: 03-10-2023 End: 03-10-2023 ambulatory Margaret Lazo Other [employer] Other Start: 03-10-2023 Telephone encounter Margaret Valdivialuigi her [facility] Start: 02-19-2023 End: 02-19-2023 ambulatory Margaret Lazo Other [employer] Other Start: 02-19-2023 Office outpatient vi sit 15 minutes Margaret Lazo [facility] Start: 02-04-2023 End: 02-04-2023 Office outpatient new 30 minutes Bubba Guillen [employer] S[employer]PPER Work Phone: [facility] [place] Comment on above: Laceration of palm, left, initial encounter (Primary Dx) Start: 02-04-2023 End: 02-04-2023 ambulatory MARGARET LAZO [facility] Start: 12-25-2022 End: 12-25-2022 ambulatory Margaret Lazo Other [employer] Other Start: 12-25-2022 Office outpatient ne w 30 minutes Margaret Lazo [facility] Start: 10-22-[address] ADALID WILKINS . Fac ility:[facility] Start: 09-18-2022 ambulatory TRINY Reyes SOTO Faci lity:[facility] Start: 09-04-2022 ambulatory TRINY SOTO Faci lity:[facility] Start: 06-15-2022 End: 06-16-[address] ADALID WILKINS . Facility:[facility] Start: 05-20-2022 End: 05-21-[address] ADALID WILKINS . Facility:[facility] Start: 11-17-[address] ADALID WILKINS . Fac ility:[facility] Procedures Date Procedure Procedure Detail Performing Clinician Start: 02-04-2023 Repair intermediate n/h/f/xtrnl gent 2.5cm/< Bubba Guillen CNP Work Phone: Start: 06-08-2019 Microalbumin [Mass/v olume] in Urine by Test strip Bubba Guillen CNP Work Phone: Start: 03-29-2019 Follow-up visit Plan of Treatment Date Care Activity Detail Author Start: 04-12-2024 End: 04-12-2024 Patient encounter procedure 04/12/2024 1:15 PM EST Office Visit [facility] [address] [place] [address] Erika Viera DO [address] [place] [address] [facility] Start: 01-27-2024 End: 01-27-2024 Patient encounter procedure 01/27/2024 12:45 PM EDT Office Visit [facility] [address] [place] [address] Erika Viera DO [address] [place] [address] [facility] Comment on above: Arrived Start: 2024 Influenza vaccination Influenza Vacc ine (#1) [facility] Start: 01-22-2023 Influenza vaccination Sequenti al Influenza Vaccine (#1) [facility] Start: 11-18-2022 Hemoglobin A1c measurement A1C [facility] Start: 12-06-2020 COVID-19 Vaccine (3 - Pfizer series) COVID-19 Vaccine (3 - Pfizer series) [facility] Start: 06-08-2020 Urine screening for protein Urine Microalbumin [facility] Start: 02-24-2013 Pneumococcal Vaccine : Ped or At-Risk (2 - PCV) Pneumococcal Vaccine: Ped or At-Risk (2 - PCV) [facility] Start: 01-22-1998 Hepatitis C screening Hepatitis C Sc reening [facility] Start: 01-22-1995 HIV screening HIV Screening [facility] Start: 1992 Depression screening using PHQ-9 (Patient Health Questionnaire 9) score Depression Screening (PHQ-2/9) [facility] Start: 01-22-1990 Diabetic foot examination Foot Exam [facility] Start: 01-22-1990 Glaucoma screening Diabetic Eye Exam [facility] Start: 01-22-1983 History and physical examination, annual for health maintenance Wellness Visit [facility] Start: 1980 Tetanus vaccination Tetanus: Every 1 0yrs [facility] Comprehensive metabo lic 2000 panel - Serum or Plasma [facility] Immunizations Immunization Date Immunization Notes Care Provider Fa cility 04-18-2023 influenza virus vacc ine, unspecified formulation Erika Viera DO Work Phone: [facility] Payers Date Payer Category Payer Unknown BCBS BCBS [id number] 2022-Present [phone] [address] [place] [address] [id number] 1980 Unknown [id number] [id number] 1980 Unknown [id number] [id number] 1980 Unknown [id number]. [id number] 1980 Unknown [id number]. [id number] 1980 Unknown [id number]. [id number] 1980 Unknown [id number] [id number]. [id number] 1980 Unknown [id number] [id number]. 2.903 1980 Unknown [id number] [id number] 1959 Self-pay 1959 Unknown [id number] 1959 Unknown [id number] Private Health Insurance [facility] [id number] Unknown MMO [id number] Worker's Compensation [employer] WORK[employer] COMPENSATION [id number] Effective for all dates [address] [place] [address] [id number] Worker's Compensation [id number] Social History Date Type Detail Facility Start: 01-25-2024 Sex Assigned At [facility] [employer] Other Start: 05-24-1997 End: 01-25-2024 Tobacco smoking status [facility] Smokes tobacco daily [facility] Start: 05-24-1997 History of tobacco use Cigarette Smo ker [facility] Start: 02-04-2023 Tobacco use and exposure Smokeless tobacco non-user [facility] Start: 1980 Sex Assigned At Not on file [facility] Start: 06-24-2023 End: 08-31-2023 Tobacco smoking status [facility] Smoker (finding) [facility] Start: 1980 Sex Assigned At Male [facility] Start: 01-25-2024 Cigarettes smoked current (pack per day) - Reported 0.5 [facility] Clinical Notes 11-21-2020 to 01-27-2024 Erika Viera DO - 01/27/2024 12:45 PM EDT Note Date & Type Note Facility 01-27-2024 History of Presen t illness Narrative Images from the original note were not included. Chief Complaint Patient presents with Sleep Apnea Subjective Osmany Arce, 44 y.o., male being seen in Sleep Consulation the request of margaret Lazo. HPI He was previously diagnosed with sleep apnea about 13 years ago and needed to get a new machine. He was tired, snoring and not feeling rested. When th first got the machine it was helpful and controlled the symptoms. The patient states that he has been wearing his machine nightly and has no issues with his machine. He needs supplies from [facility]. Sleep ND Patient Symptoms Snores: yes Wakes gasping for breath: yes Dozes off if inactive: yes Dozes off with activity:struggle Wakes a lot through the night: Witnessed episodes of apnea: Yes Is sleep restful or restorative: No Bedtime: 3am Is it hard or easy to fall asleep: easy Wakes 6 am Takes naps: daily, 15-60 minutes Feels better after napping: sometimes Sleepwalk: no Sleeptalk: no Vivid Dreams: no Acts out dreams: no Sleep related hallucinations: no Sleep paralysis: no Cataplexy: no Restless Leg: once in a while Kicking/Jerking at night: TV on while sleeping: no tabocco before bed: yes Caffeine within 3 hours before bed: no Past Medical History: Diagnosis Date Arthritis of back Axillary fullness BMI 40.0-44.9, adult (CMS/HCC) Dyslipidemia (CMS/HCC) Hypertension (CMS/HCC) Mass of axilla Smoker Tobacco use Past Surgical History: Procedure Laterality Date OTHER SURGICAL HISTORY fracture of metacarpal bone VASECTOMY 04/23/2019 Family History Problem Relation Name Age of Onset Leukemia Mother Diabetes type II Father Myasthenia gravis Father Social History Tobacco Use Smoking status: Every Day Current packs/day: 0.50 Average packs/day: 0.5 packs/day for 26.7 years (13.3 ttl pk-yrs) Types: Cigarettes Start date: 1997 Smokeless tobacco: Not on file Substance Use Topics Alcohol use: Not on file Allergies: Amlodipine, Metoprolol, and Sulfamethoxazole-trimethoprim General: No fever or chills HEENT: No nasal congestion or runny nose Pulmonary: No shortness of breath or cough Cardiovascular: No chest pain or palpitations GI: No nausea or vomiting : No dysuria or hematuria Musculoskeletal: No new aches or pains or muscle weakness Infectious: no recurrent fevers or infections Dermatologic: No rashes or skin lesions Neurologic: No new headaches or dizziness Vitals: 01/27/24 1244 BP: 136/88 Pulse: 88 SpO2: 97% Body mass index is 50 kg/m . weight: 400 lb Neurologic exam: General: obesity, cooperative, pleasant Mental status: Awake, alert to person, place and time. Recent and remote memory are intact. Attention and concentration are normal. Fund of knowledge is appropriate for level of education. HEENT: NC/AT Cranial nerves: CN II: Visual loco full to confrontation. No loss of vision CN III, IV, : pupils equal round and reactive to light. Extraocular movements intact. No ptosis present. CN V: Facial sensation is normal. CN VII: Full and symmetric facial movement. CN VIII: Hearing is normal CN IX and X: Palate elevates symmetrically. CN XI: Shoulder shrug is normal bilaterally. CN XII: Tongue is midline without atrophy or fasciculation. Speech: Clear and fluent no aphasia or dysarthria Pronator drift: Negative bilateral upper extremity Coordination: Intact, no signs of dysmetria Good finger to nose and rapid alternating movements Sensory: Sensation is intact to light, temperature and vibratory touch throughout four extremities. Motor: LUE 5/5 RUE 5/5 LLE 5/5 RLE 5/5 Tone: Physiologic, no tremor, bradykinesia or rigidity DTR: Bilateral Biceps 2/4 Bilateral BR 2/4 Bilateral Patellar 1/4 No spasticity Gait: Normal to casual gait Romberg's Negative Review and summary of old records: Assessment/Plan Diagnoses and all orders for this visit: MAIKOL (obstructive sleep apnea) Hypoxia Sleep deprivation Inadequate sleep hygiene Class 3 severe obesity due to excess calories with body mass index (BMI) of 50.0 to 59.9 in adult, unspecified whether serious comorbidity present ([facility]) Hypersomnia Snoring 44 year old male with A severe obstructive sleep apnea with an apnea-hypopnea index of 93 and hypoxia with desaturation down to 75%. This is leading to daytime hypersomnolence and snoring. Unfortunately 1 of his major issues is that he cannot enough hours of sleep as he has a special needs child who requires much attention and care and he and are the caregivers. He will try to sleep for as big of a chunk as he can at night which tends to only be around 4 hours or so. He does take some naps but does not always get the machine on because he dozes off and does not intentionally take the nap. This also complicates the compliance. He is putting the machine 100 percent of the time but only 50 percent of the time greater than 4 hours her average nightly usage is 4 hours and 33 minutes and with a residual AHI of 0.2 so it is working when use. he would likely benefit from a nocturnal pulse ox but we would like to get more hours on the machine 1st. I did brain storm with them to see if there is any way they can trade off on taking care of the special needs child with her and 1 of them get a good night's sleep 1 night and then the other the next. Sounds like at times she needs 2 person assist. The special needs child did just get her own CPAP machine so they are hopeful that she will sleep longer at night. It would be nice if they would let him keep his machine despite not being 100 percent compliant as this is a very special circumstance that he and are primary caregivers for the special needs child who requires so much attention. They were counseled on sleep deprivation and its long-term repercussions including but not limited to stroke cardiovascular disease and development of dementia. They understand this but at this point in time they have no other choice or caregivers. I am hopeful if he can get her machine on 4 naps that she will meet the compliance therefore I am requesting another 4-6 weeks to see if he can meet the compliance data. We will send for new supplies. Plan HST was reviewed with them Compliance data was reviewed as above We will send for new supplies Hopeful for an additional 4-6 weeks to try to meet compliance as I am hopeful that he can wear it during her nap periods during the day that she will meet the 70 percent compliance rate. Try to work with and any other outside caregivers to try to get more sleep time he does understand the repercussions of sleep deprivation including but not limited to stroke cardiovascular lesion development of dementia The patient was counseled on proper sleep hygiene and adequate hours of sleep. The patient was counseled on the risks of stroke, PA, and sudden with MAIKOL, along with the need for compliance with the CPAP/BiPAP treatment. The diagnosis was all discussed with the patient. All questions were answered and they agreed with the treatment plan. Patient will call if there are any new issues or questions. Pt has been fully educated on their diagnosis, treatment options, follow up plan, and return instructions Return to clinic: 2 months documented in this encounter [facility] 07-05-2023 Evaluation note Encounter Date Diagnosis Assessment Notes Jun, Primary hypertension (ICD-10 - I10) Jun, Mixed hyperlipidemia (ICD-10 - E78.2) [facility] Other 12-12-2023 Evaluation note* Encounter Date Diagnosis Assessment Notes Treatment Notes Treatment Clinical Notes Apr, COVID-19 (ICD-10 - U07.1) Rapid COVID antigen test performed at home and was POSITIVE. Instructed patient to isolate per CDC guidelines for 5 days from symptom onset and then 5 days in a mask. May return to work/activities outside home after isolation period as long as symptoms have improved and has been afebrile for 24 hours without use of antipyretic. Advised patient that treatment of COVID is with viral supportive care at this time. May continue to use OTC cough/cold medication. Use Tylenol/Motrin as needed for body aches/fever. Increase fluids and rest. Encouraged use of cool mist humidifier and other supportive remedies. Given age and duration of symptoms, she is a good candidate for paxlovid. Educated about the risks vs benefit of medicine. He understands and would like to start it. Most recent GFR is greater than 60. No history of liver disease. Immediate eval by ER for SOB, difficulty breathing, chest pain, fevers that do not break with antipyretic, severe headache, neck pain/stiffness, abdominal pain, persistent N/V, severe dehydration, or any other concerning symptoms as reviewed on patient education handout. Patient verbalizes understanding and is agreeable to treatment plan. Patient left in stable condition. Apr, Other The patient was seen per scheduled virtual care visit in their home and my location (provider) is in the family practice office setting. The staff involved in visit was myself, Margaret Lazo DNP, APRN, CNP (provider) and Laila Liang, who was the roomer in asking patient pre-visit questions per virtual visit platform. Time spent with patient was approximately 7 minutes. [facility] Other 09-29-2023 Evaluation note* Encounter Date Diagnosis Assessment Notes Treatment Notes Treatment Clinical Notes Jan, Current moderate episode of major depressive disorder without prior episode (ICD-10 - F32.1) Referral placed per pt request for family health services. [facility] Other 09-14-2023 Instructions* Patient Instructions* Bubba Guillen CNP - 02/04/2023 12:01 PM EDT Plan for laceration: Cephalexin antibiotic; start taking today for prevention of infection. See after visit summary for details of treatment of laceration/sutures at home. [phone] as soon as possible to make an appointment for follow up. [facility] provides work r elated injury and illness care. See [facility] paperwork for restrictions and return to work date. [address], [address] [address] 8am-430pm Wednesday through Wednesday Recommended follow up date with [facility] is as soon as possible. * Attachments The following attachments cannot be sent through Care Everywhere. * Hand Laceration: Stitches (Norwegian) documented in this [id number] History of Present illness Narrative* Bubba Guillen CNP - 02/04/2023 11:34 AM EDTAssociated Order(s): Laceration repair Post-Procedure Diagnose(s): Laceration of palm, left, initial encounter Images from the original note were not included. Patient Name: [facility] Location: [place] [address] [facility] [id number] Date Of : Date Of Visit: 1980 02/04/2023 MRN# Provider: [id number] Bubba Guillen CNP Chief Complaint Patient presents with Laceration Left hand palmar surface near 1st digit Assessment & Plan 1. Laceration of palm, left, initial encounter cephALEXin (KEFLEX) 500 MG capsule Ambulatory referral to [facility] No follow-ups on file. Medical Decision Making See HPI. See Exam findings. Vital signs reviewed. Left hand laceration of palm. Patient stated occurred when a lockout arm/lever was moved. Stated occurred at work. The lever pinched the skin. Deniesnumbness, tingling, weakness of left hand/fingers. Uncertain of last tetanus vaccination. Laceration 1.1cm; four sutures placed; see procedure note for details. Tetanus vaccination offered and recommended but patient declined. Discussed oral antibiotic treatment for prophylaxis to prevent infection; patient agreeable to prescription cephalexin. Patient declined restrictions. Patient stated is able to do job without restrictions. Diagnosis Laceration left palm . Differential considered included tendon injury, nerve injury, foreign body . Plan for laceration: Cephalexin antibiotic; start taking today for prevention of infection. See after visit summary for details of treatment of laceration/sutures at home. [facility] [phone] as soon as possible to make an appointment for follow up. [employer] provides work r elated injury and illness care. See [facility] paperwork for restrictions and return to work date. [employer], [address] [place] [address] 8am-430pm Wednesday through Wednesday Recommended follow up date with [facility] is as soon as possible. . Prior to the conclusion of the encounter the nurse practitioner discussed with the patient the diagnosis, treatment plan, and follow up recommendation. Questions were answered until the patient expressed satisfaction that they had no further question, comment or concern. Subjective 43 y.o. male presents with Laceration (Left hand palmar surface near 1st digit ) Left hand laceration of palm. Patient stated occurred when a lockout arm/lever was moved. Stated occurred at work. The lever pinched the skin. Denies numbness, tingling, weakness of left hand/fingers. Uncertain of last tetanus vaccination. Laceration Review Of Systems Review of Systems Constitutional: Negative for fever. Respiratory: Negative for shortness of breath. Cardiovascular: Negative for chest pain and palpitations. Skin: Positive for wound. Negative for rash. Neurological: Negative for tremors, weakness and numbness. Hematological: Negative for adenopathy. Psychiatric/Behavioral: Negative for confusion. Medical History Past Medical History: Diagnosis Date Arthritis Hypertension History reviewed. No pertinent surgical history. There is no problem list on file for this patient. Social History Social History Tobacco Use Smoking status: Every Day Types: Cigarettes Smokeless tobacco: Never Vaping Use Vaping Use: Never used Family History No family history on file. Objective Physical Exam BP 130/85 Pulse 74 Temp 97.2 F (36.2 C) Resp 17 Ht 6' 4 Wt (!) 173 kg (381 lb 4.8 oz) SpO2 95% BMI 46.41 kg/m Vision/Hearing Exam:No results found. Physical Exam Constitutional: General: He is not in acute distress. Appearance: He is not toxic-appearing. HENT: Head: Normocephalic. Cardiovascular: Rate and Rhythm: Normal rate. Pulmonary: Effort: Pulmonary effort is normal. No respiratory distress. Abdominal: General: There is no distension. Musculoskeletal: Left hand: Laceration present. No swelling or deformity. Normal range of motion. Normal strength. Normal sensation. Normal capillary refill. Normal pulse. Hands: Comments: 1.1cm length, C shaped laceration Skin: General: Skin is warm and dry. Capillary Refill: Capillary refill takes less than 2 seconds. Findings: No rash. Neurological: General: No focal deficit present. Mental Status: He is alert and oriented to person, place, and time. Sensory: No sensory deficit. Motor: No weakness. Coordination: Coordination normal. Psychiatric: Behavior: Behavior normal. Thought Content: Thought content normal. Procedure Notes Wound extent: Laceration repair Date/Time: 02/04/2023 11:38 AM Performed by: Bubba Guillen CNP Authorized by: Bubba Guillen CNP Verbal consent: obtained Written consent: not obtained Reason consent not obtained: emergency Consent given by: patient Relevant documents: Relevent documents present and verified. Medical history, medications, allergies and physical assessment reviewed/completed Test results: test results available and properly labeled Site: site marked by physician or proceduralist who is privileged and credentialed to perform procedure Required items: required blood products, implants, devices, and special equipment available Patient identity confirmed: verified patient name and and verbally with patient Physician or proceduralist has discussed critical or nonroutine steps, procedure duration and anticipated blood loss: Yes All team members agree to proceed: Yes Body area: upper extremity Location details: left hand Laceration length: 1.1 cm Contamination: The wound is contaminated. Foreign bodies: no foreign bodies Tendon involvement: none Nerve involvement: none Vascular damage: no Anesthesia: local infiltration Anesthesia: Local Anesthetic: lidocaine 1% without epinephrine Anesthetic total: 3 mL Patient sedated: no Repair type: simple Preparation: Patient was prepped and draped in the usual sterile fashion. Irrigation solution: saline Irrigation method: syringe Amount of cleaning: extensive Hemostasis achieved with: direct pressure no foreign body, no muscle damage, no nerve damage, no tendon damage, no underlying fracture and novascular damage Debridement: none Degree of undermining: none Skin closure: 4-0 ethilon Number of sutures: 4 Technique: simple interrupted Approximation: close Approximation difficulty: simple Dressinx4 sterile gauze Patient tolerance: patient tolerated the procedure well with no immediate complications Results No results found for this or any previous visit (from the past 168 hour(s)). No orders to display Orders Placed This Visit Orders Placed This Encounter Procedures Laceration repair Ambulatory referral to [facility] Medication List At End Of Visit Current Outpatient Medications Medication Sig Dispense Refill atorvastatin (LIPITOR) 80 MG tablet Take 1 (one) tablet (80 mg total) by mouth daily . losartan (COZAAR) 100 MG tablet Take 1 (one) tablet (100 mg total) by mouth daily . meloxicam (MOBIC) 15 MG tablet Take 1 (one) tablet (15 mg total) by mouth once daily . pregabalin (Lyrica) 25 MG capsule Take 1 (one) capsule (25 mg total) by mouth every night at bedtime . verapamil sr (CALAN-SR) 180 MG 12 or 24hr tablet Take 1 (one) tablet (180 mg total) by mouth every night at bedtime . cephALEXin (KEFLEX) 500 MG capsule Take 1 (one) capsule (500 mg total) by mouth 4 (four) times a day for 7 days . 28 capsule 0 No current facility-administered medications for this visit. Patient Instructions Plan for laceration: Cephalexin antibiotic; start taking today for prevention of infection. See after visit summary for details of treatment of laceration/sutures at home. [phone] as soon as possible to make an appointment for follow up. [facility] provides work r elated injury and illness care. See [facility] paperwork for restrictions and return to work date. [facility] [address] [facility] [facility], [address] [place] [address] 8am-430pm Wednesday through Wednesday Recommended follow up date with Work Health is as soon as possible. documented in this [id number] Evaluation note* Encounter Date Diagnosis Assessment Notes Treatment Notes Treatment Clinical Notes Dec, Primary hypertension (ICD-10 - I10) To goal. Prior to your visit today we reviewed your chart and outlined the tetsing and treatment needed for your care. We discussed the possible complications of high blood pressure, including increased risk for heart disease, stroke, and kidney disease. Our goal is to keep your blood pressure below 130/85 (an preferably < 120/80) and maintain a healthy weight with a BMI less than 26. We are working together to acheive these goals with the following plan; healthier diet, increased activity and exercise, understanding your medicaitons, and your complaince. You have been given relevant education handouts. 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 The following exercises are gentle on the joints. Patient is advised to take anti-inflammatory if needed. 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 Discussed associated risk factors of hyperlipidemia including stroke and heart attack. Treatment with medications discussed and we have agrees upon appropirate action of treatment and goals. Discussed dietary modifications, including decreasing red meat consumption, decreased alcohol consumption, avoiding fried foods, and cake and cookies, and sweets. Encouraged increasing fiber in diet and eat a diet rich in omega-3. Encouraged to exericse at least 150 minutes weekly. Barriers to plan of care have been addressed. Follow-up as directed. Patient given a copy of the plan of care. Dec, Obstructive sleep apnea (ICD-10 - G47.33) Face to face visit for new CPAP and supplies Fortunately, the patient is using and benefiting from treatment. We will submit a request for a new machine today as his current machine's motor has exceeded life expectancy, an order was placed to have this completed, as well as a prescription for new supplies throughout the year. He was encouraged to continue to use his machine nightly, throughout the entire night and for naps as this does provide clinical benefit. Dec, Current smoker (ICD-10 - F17.200) We discussed possible complications of smoking including risk of heart disease, stroke, lung disease, and increase risk of cancer. Your goal is to quit smoking. The availability, risks, and benefits of medication used to treat nicotine addiction as releveant to you have been discussed. We are working together to achieve these goals with the following plan; barriers to these goals have been discussed. You have been given relevant education handouts and a summary of your care plan. Your next follow-up visit for this problem is six months, we will continue to ask progress for quitting and willingness to quit at each appointment. [facility] Other 2023 NotePROCEDURE: XR HAND LT 2 V HISTORY: Pain of left hand ; left thumb pain since injury 3 weeks ago COMPARISON: None. FINDINGS: BONES:Mild degenerative changes the first carpal-metacarpal joint. No fracture, dislocation, bone lesion. SOFT TISSUES:No visible soft tissue swelling. EFFUSION:None visible. OTHER: Negative. IMPRESSION: 1. No acute bone abnormality. 2. Mild degenerative changes at base of thumb. Electronically authenticated by: CHRISTINE VELARDE Date: 2022-06-15 15:02[facility]07-01-2021 NoteChief Complaint referral for swollen lymph node HPI Staff 40 year old male presents on consultation from Dr. Wilkins for left axilla swollen lymph node afterCOVID vaccine. Received vaccine 10/11, noticed swollen node several days after that. Node is still swollen, however, tenderness has resolved. He is not aware of any additional swollen nodes. History of Present Illness 40 yo male with h/o htn, referred for possible left axillary adenopathy; present for 4 weeks, beganseveral days after second COVID 19 vaccination; has associated fevers and aches; now no soreness orfevers; notices fullness to left axilla; no injury to left arm or CAT scratches; was treated with course of antibiotics by family physician; no fevers or night sweats; no h/o adenopathy in past or inany other areas. no imaging studies; smokes 1 ppd. Review of Systems PHQ Score Initial Depression Screen Score: 0 ROS - Provider Constitutional: no fever, no sweats, no weight loss. Eyes: no glasses, no blurred vision, no visual loss. ENMT: no dentures, no hoarseness, no swallowing difficulties, no hearing loss, no ear infection(s),no nose bleeds. Cardiovascular: normal blood pressure, no chest pain, regular heartbeat, no heart murmur. Respiratory: no shortness of breath, no cough, no asthma, no wheezing. Gastrointestinal: no nausea, no vomiting, no diarrhea, no constipation, no blood in stool, no change in bowel habits, no abdominal pain, no hepatitis. Genitourinary: no kidney stones, no urine infection, no dysuria. Musculoskeletal: no pain, no weakness. Skin: no changing moles, no rash, no skin lumps. Neurologic: no seizures, no epilepsy, no headache. Psychiatric: no emotional or psychiatric problem. Heme/Lymph: no bleeding problems, no anemia, no blood clots, no transfusions. Allergy/Immunologic: yes swollen lymph nodes/glands, no IV drug abuse. Other: Additional ROS info: Except as noted in the above Review of Systems and in the History of Present Illness, all other systems have been reviewed and are negative or noncontributory. Physical Exam Vitals & Measurements T: 36.6 ?C (Temporal Artery) HR: 73(Peripheral) RR: 16 BP: 153/100 HT: 190.5 cm HT: 190.5 cm WT: 160.8 kg WT: 160.8 kg BMI: 44.31 HEENT: normal conjunctiva, sclera clear, no scleral icterus, EOM intact, PERRLA, oral mucosa moist without lesions. Neck: trachea midline, no mass, symmetric, no thyromegaly or nodules, no adenopathy Respiratory: lungs CTA, respirations non labored. Cardiovascular: regular rate and rhythm, no murmur, no pedal edema or varicosities. Lymphatic: no cervical adenopathy, no axillary adenopathy, fullness in left axilla, no skin changesor tenderness Musculoskeletal: normal gait, digits and nails without infection, nodes, cyanosis, clubbing. cast on right forearm Skin: no rashes, no lesions, no ulcers, no subcutaneous nodules, induration. Psychiatric/Neuro: oriented to time, place, person, judgement normal, affect appropriate for age, insight intact, no focal deficits. Tests: review of old records completed, Assessment/Plan 1. Axillary fullness (R22.2: Localized swelling, mass and lump, trunk) check left axillary US to evaluate for adenopathy; likely reactive due to COVID vaccine; will call patient with results; call sooner if problems/questions. 2. Tobacco use (Z72.0: Tobacco use) We strongly recommend to quit tobacco use. Cigarette smoking harms nearly every organ of the body, causes many diseases, and reduces the health of smokers in general. Quitting smoking lowers your risk for smoking-related diseases and can add years to your life. We encourage you to visit www.smokefree.gov access to helpful resources including free telephone support. If you decide on prescription treatment to help you quit, your family doctor would be happy to provide these. Follow-up No qualifying data available Problem List/Past Medical History Ongoing Arthritis of back Axillary fullness BMI 40.0-44.9, adult Dyslipidemia Hypertension Mass of axilla Smoker Tobacco use Historical No qualifying data Procedure/Surgical History Vasectomy (04/23/2019), Fracture of metacarpal bone. Medications acetaminophen-hydrocodone 325 mg-5 mg oral tablet atorvastatin 40 mg Tab, 40 mg= 1 tab(s), Oral, Daily Bentyl 20 mg Tab, 20 mg= 1 tab(s), Oral, QID loperamide 2 mg Tab, 2 mg= 1 tab(s), Oral, q4hr, PRN losartan 100 mg Tab, 100 mg= 1 tab(s), Oral, Daily meloxicam 15 mg oral tablet, 15 mg= 1 tab(s), Oral, Daily Zofran ODT 4 mg Tab-Dis, 4 mg= 1 tab(s), Oral, TID Allergies Bactrim (Itching) amLODIPine (Unknown) metoprolol (Unknown) Social History Tobacco 10 or more cigarettes (1/2 pack or more)/day in last 30 days Tobacco Use:. 1 per day. Started age 18.0 Years., 11/19/2020 Family History Diabetes mellitus type 2: Father. Leukemia: Mother. Myasthenia gravis: Father. Immunizations Vaccine Date Status SARS-CoV-2 (COVID-19) mRNA BNT-162b2 vax 10/12/19 (more content not included)... [facility]Comment on above:Result Comment: Electronically Signed By: JAKE JEFFERS, Epifanio Macdonald\Date and Time Signed: 11/21/20 16:42 EDT Evaluation note* Diagnosis Laceration of palm, left, initial encounter- Primary documented in this encounter [facility] noteNo InformationNo[facility] Other Evaluation note* Diagnosis Onset Date Resolution Status Arthritis acute Chronic pain acute Current moderate episode of major depressive disorder without prior episode acute Current smoker acute Mixed hyperlipidemia acute Neuropathy acute Obstructive sleep apnea acut e Primary hypertension acute Primary osteoarthritis, left wrist acute Primary osteoarthritis, right wrist acute [facility] Work Phone: Evaluation note* Diagnosis MAIKOL (obstructive sleep apnea) Obstructive sleep apnea (adult) (pediatric) Hypoxia Hypoxemia Sleep deprivation Problems related to lack of adequate sleep Inadequate sleep hygiene 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 Class 3 severe obesity due to excess calories with body mass index (BMI) of 50.0 to 59.9 in adult, unspecified whether serious comorbidity present ([facility]) Hypersomnia Hypersomnia, unspecified Snoring Other dyspnea and respiratory abnormality documented in this encounter [facility] Narrative - Reported* Type Description Date Medical History Hypertension Medical History Hyperlipidemia Medical History Arthritis-- wrist and upper back Medical History sleep apnea Surgical History RIGHT HAND Surgical History ankle surgery right 2021 [employer] Other Reason for referral (narrative)* Reason would like a re ferral to Bruna Schafer at [facility] in [place]- psychiatry Diagnosis 1 Current moderate epi sode of major depressive disorder without prior episode (F32.1) Referral Organization [facility] Referring Provider First Name Margaret Referring Provider Last Name Violet Referring Provider Specialty Nurse Pract emilee Referred Organization [facility] Referred Address [address] [place], [place] Referred Provider Specialty Psychiatry Referral Priority Routine General Notes Janeth Beaulieu 02:18:57 PM >received today, waiting for notes to be locked to fax Clinical Notes f: [id number] [place] Other Summary Purpose Family History Relationship Condition Age at Onset Recorded Date/T evette father Diabetes mellitus Unknown Hypertension Unknown Heart disease Unknown Advance Directives Advance Directive Response Recorded Date/ Time Advance Directives No June 9:18am Advance Directive Response Recorded Date/ Time Advance Directives No June 10:18am Procedure Findings Note Post Operative Note: Post-Pr ocedure Diagnosis: Elective Sterilization Procedure: Bilateral vasectomy Surgeon: susan almanza Resident/Fellow/Other Tin Roofer: none Anesthesia: General I.V. Fluids: pAR Estimated Blood Loss (mL): 2 Specimen: yes Complications: none Findings: normal anatomy Signature/Cosignature/Attestation: Note Completion: Attending AttestationI was present for the entire procedure Electronic Signatures: Susan Almanza) (Signed 19-May-2019 09:11) Authored: Post Operative Note, Signature/Cosignature/Attestation Last Updated: 19-May-2019 09:11 by Susan Almanza) Reason for Referral Specialty Diagnoses / Procedures Referred By Delmi jean Referred To Contact Occupational Medicine Diagnoses Laceration of palm, left, initial encounter Bubba Guillen, [address] [place] [address] [address] Referral ID Status Reason Start Date Expiration Date V isits Requested Visits Authorized [id number] Authorized 02/05/2023 02/05/2024 1 1 Chief Complaint and Reason for Visit Chief Complaint 6 Month Follow Up pain - medication discussions Reason for Visit Arthritis Chronic pain Current moderate episode of major depressive disorder without prior episode Current smoker Mixed hyperlipidemia Neuropathy Obstructive sleep apnea Primary hypertension Primary osteoarthritis, left wrist Primary osteoarthritis, right wrist Chief Complaint 6 Month Follow Up pain - medication discussions 1 month follow up Reason for Visit Arthritis Chronic pain Current moderate episode of major depressive disorder without prior episode Current smoker Mixed hyperlipidemia Neuropathy Obstructive sleep apnea Primary hypertension Primary osteoarthritis, left wrist Primary osteoarthritis, right wrist Additional Source Comments (unrecognized sect ion and content) No Status Records FoundNo Status Records FoundNo Status Records FoundNo Status Records FoundNo Status Records FoundNo Status Records Found INFORMATION SOURCE (unrecogn ized section and content) DATE CREATED AUTHOR 03/29/2019 [employer] DATE CREATED AUTHOR AUTHOR'S ORGANIZ ATION 05/25/2019 [facility] DATE CREATED AUTHOR AUTHOR'S ORGANIZ ATION 01/30/2021 [facility] DATE CREATED AUTHOR AUTHOR'S ORGANIZ ATION 10/30/2022 [facility] DATE CREATED AUTHOR AUTHOR'S ORGANIZ ATION 02/06/2023 [facility] DATE CREATED AUTHOR AUTHOR'S ORGANIZ ATION 01/29/2024 [facility] EPIC REASON FOR VISIT (unrecogniz ed section and content) Reason Comments Laceration Left hand palmar debra face near 1st digit Reason Comments Sleep Apnea Care Teams (unrecognized sec tion and content) Loss Mitigation Specialist Relationship Specialty Start Date End Date Margaret Lazo CNP [address] [place] [address] PCP - General Nurse Practitioner 02/04/23 Team Status: Active Member Role Status Dates Margaret Lazo APRN [employer] ECONOMIST-C Primary Care Provider Active Team Status: Active Member Role Status Dates Provider Conversion Attending Provider Active St art: May 04, 2023 Team Status: Inactive Member Role Status Dates Margaret Lazo APRN TAX ECONOMISTEliot Attending Provider Act jason Start: June 25, 2023 End: June 25, 2023 Team Status: Inactive Member Role Status Dates Margaret Lazo APRN TAX ECONOMIST-Janice Primary Care Provider, Attending Provider Active Start: July 09, 2023 End: July 09, 2023 Team Status: Inactive Member Role Status Dates Margaret Lazo APRN [employer]AX ECONOMIST-Janice Primary Care Provider, Attending Provider Active Start: August 31, 2023 End: August 31, 2023 Loss Mitigation Specialist Relationship Specialty Start Date End Date Branden Garcia MD [address] [place] [address] PCP - General Internal Medicine 04/21/23 Loss Mitigation Specialist Relationship Specialty Start Date End Date Branden Garcia MD [address] [place] [address] PCP - General Internal Medicine 04/21/23 Goals (unrecognized section and content) Goals may be documented in a n alternate section FOR RECORDS PERTAINING TO PATIENTS WHO ARE OR HAVE BEEN ENROLLED IN A CHEMICAL DEPENDENCY/SUBSTANCEABUSE PROGRAM, SOME INFORMATION MAY BE OMITTED. This clinical summary was aggregated from multiple sources. Caution should be exercised in using it in the provision of clinical care. This summary normalizes information from multiple sources, and as a consequence, information in this document may materially change the coding, format and clinical context of patient data. In addition, data may be omitted in some cases. CLINICAL DECISIONS SHOULD BE BASED ON THE PRIMARY CLINICAL RECORDS. [facility] provides no warranty or guarantee of the accuracy or completeness of information in this document.
== END 2024-06-28 13:31 | disposition home or self-care (01) ==
LOC: RAD 13:30
PROVIDERS: PCP Nurse Practitioner Family; Visit Provider Podiatrist Foot & Ankle Surgery
DX: M25.572 Pain in left ankle and joints of left foot (principal); M25.571 Pain in right ankle and joints of right foot; M77.51 Other enthesopathy of right foot and ankle; M77.52 Other enthesopathy of left foot and ankle
CPT/HCPCS: 73610; 73630

== ENCOUNTER 2024-07-19 09:29 | Outpatient (OUT) | payer OTHER, SELFPAY ==
--- OUTSIDE RECORDS SUMMARY | 2024-07-19 09:37 | XMS_ITS | CCD ---
Author Organization [facility] Care Team Providers Care Drafter Seismograph Name Role Phone FRANKY ., DR CORDOBA [...] DR CORDOBA Attending Unavailable Margaret Lazo Unavailable Margaret Lazo CNP Primary Care Provider MARGARET LAZO Primary Care Unavailable BUBBA GUILLEN Attending Unavailable ERIKA VIERA Attending Unavailable Branden Garcia MD Primary Care Provider Allergies Allergy Classification Reported Allergen(s) Allergy Type Date of Onset Reaction(s) Facility (2 sources) Sulfamethoxazole / Trimethoprim Drug Allergy 1 [facility] Repository (10 sources) Sulfamethoxazole / Trimethoprim Drug Allergy 1 Itching, Unknown [facility] (1 source) Sulfamethoxazole / Trimethoprim; Translations: [SULFAMETHOXAZOLE-TR IMETHOPRIM] Drug Allergy 1 [facility] Repository (2 sources) Sulfamethoxazole Drug Allergy 4 Unknown Reaction [facility] (2 sources) Trimethoprim Drug Allergy 4 Unknown Reaction [facility] (3 sources) amLODIPine Drug Allergy 3 [facility] Healthcare (3 sources) Metoprolol Drug Allergy 3 [facility] Healthcare Medications Current Medications Medication Drug [...] 2023 10:09am take 1 capsule by mo [facility] every twelve hours Lyrica 75 MG 1 [...] the procedure well with no immediate complications [facility] GLYCOHEMOGLOBIN A1Con 2021 ADA RECOMMENDATION SEE BELOW Normal [facility] Comment on above: Result Comment: ADA RECOMMENDED LIMIT 4.0 - 6.0 ADA THERAPEUTIC TARGET < 7.0 ACTION SUGGESTED > 7.0 Performed By: #### A 1C #### [facility] [address] [address] [address] Taylor Ellis Glucose [Mass/Vol] 126 mg/dL Normal [facility] Comment on above: Performed By: #### A 1C #### [facility] [address] [address] [address] Taylor Ellis HbA1c (Bld) [Mass fraction] 6.0 % Normal 4.5-6.2 [facility] Comment on above: Performed By: #### A 1C #### [facility] [address] [place] [address] Dr. Taylor Ellis LIPID PROFILEon 05-20-2022 CHOL-HDL RATIO NORM SEE BELOW Normal [facility] Comment on above: Result Comment: 3.3 - 4.4 LOW RISK 4.4 - 7.1 AVERAGE RISK 7.1 - 11.0 MODERATE RISK >11.0 HIGH RISK Performed By: #### C MP, LIPID #### [facility] [address] [place] [address] Dr. Taylor Ellis Cholesterol [Mass/Vol] 118 mg/dL Normal <=200 [facility] Comment on above: Performed By: #### C MP, LIPID #### [facility] [address] [place] [address] Dr. Taylor Ellis Cholesterol in HDL [Mass/Vol] 28 mg/dL Critically low 40-60 [facility] Comment on above: Performed By: #### C MP, LIPID #### [facility] [address] [address] [address] Taylor Ellis Cholesterol in LDL [Mass/Vol] 45.4 mg/dL Normal [facility] Comment on above: Performed By: #### C MP, LIPID #### [facility] [address] [place] [address] Dr. Taylor Ellis Cholesterol.total/C holesterol in HDL [Mass ratio] 4.2 {ratio} Normal [facility] Comment on above: Performed By: #### C MP, LIPID #### [facility] [address] [place] [address] Dr. Taylor Ellis HDL NORMAL > or = 60 mg/dl - LO W CARDIOVASCULAR RISK <40 mg/dl - HIGH CARDIOVASCULAR RISK Normal [facility] Comment on above: Performed By: #### C MP, LIPID #### [facility] [address] [address] [address] Taylor Ellis LDL CALC NORMAL SEE BELOW Normal [facility] Comment on above: Result Comment: <100 mg/dl OPTIMAL 100 - 129 mg/dl NEAR OR ABOVE OPTIMAL 130 - 159 mg/dl BORDERLINE HIGH 160 - 189 mg/dl HIGH >190 mg/dl VERY HIGH Performed By: #### C MP, LIPID #### [facility] [address] [address] [address] Taylor Ellis Triglyceride [Mass/Vol] 223 mg/dL Critically high <=150 [facility] Comment on above: Performed By: #### C MP, LIPID #### [facility] [address] [address] [address] Taylor Ellis VLDL CALC 44.6 mg/dL Normal [facility] Comment on above: Performed By: #### C MP, LIPID #### [facility] [address] [address] [address] Taylor Ellis PROF 14(COMP METB)on 05-20- 022 Albumin [Mass/Vol] 4.2 g/dL Normal 3.4-5.0 [facility] Comment on above: Performed By: #### C MP, LIPID #### [facility] [address] [address] [address] Taylor Ellis Albumin/Globulin [Mass ratio] 1.2 {ratio} Normal [facility] Comment on above: Performed By: #### C MP, LIPID #### [facility] [address] [address] [address] Taylor Ellis ALP [Catalytic activity/Vol] 45 U/L Critically low 46-116 [facility] Comment on above: Performed By: #### C MP, LIPID #### [facility] [address] [address] [address] Taylor Ellis ALT [Catalytic activity/Vol] 65 U/L Critically high 16-63 [facility] Comment on above: Performed By: #### C MP, LIPID #### [facility] [address] [address] [address] Taylor Ellis Anion gap [Moles/Vol] 9.7 mmol/L Normal [facility] Comment on above: Performed By: #### C MP, LIPID #### [facility] [address] [address] [address] Taylor Ellis AST [Catalytic activity/Vol] 36 U/L Normal 15-37 [facility] Comment on above: Performed By: #### C MP, LIPID #### [facility] [address] [address] [address] Taylor Ellis Bilirubin [Mass/Vol] 0.6 mg/dL Normal 0.2-1.0 [facility] Comment on above: Performed By: #### C MP, LIPID #### [facility] [address] [address] [address] Taylor Ellis Calcium [Mass/Vol] 9.0 mg/dL Normal 8.5-10.1 [facility] Comment on above: Performed By: #### C MP, LIPID #### [facility] [address] [address] [address] Taylor Ellis Chloride [Moles/Vol] 101 mmol/L Normal 98-107 [facility] Comment on above: Performed By: #### C MP, LIPID #### [facility] [address] [address] [address] Taylor Ellis CO2 [Moles/Vol] 31.2 mmol/L Normal 21.0-32.0 [facility] Comment on above: Performed By: #### C MP, LIPID #### [facility] [address] [address] [address] Taylor Ellis Creatinine [Mass/Vol] 0.93 mg/dL Normal 0.70-1.30 [facility] Comment on above: Performed By: #### C MP, LIPID #### [facility] [address] [address] [address] Taylor Ellis EGFR-AF TURKMEN >60 Normal >=60 [facility] Comment on above: Performed By: #### C MP, LIPID #### [facility] [address] [address] [address] Taylor Ellis EGFR-NON AF TURKMEN >60 Normal >=60 [facility] Comment on above: Performed By: #### C MP, LIPID #### [facility] [address] [address] [address] Taylor Ellis Globulin (S) [Mass/Vol] 3.4 g/dL Normal [facility] Comment on above: Performed By: #### C MP, LIPID #### [facility] [address] [address] [address] Taylor Ellis Glucose [Mass/Vol] 89 mg/dL Normal 74-106 [facility] Comment on above: Performed By: #### C MP, LIPID #### [facility] [address] [place] [address] Dr. Taylor Ellis Potassium [Moles/Vol] 3.9 mmol/L Normal 3.5-5.1 [facility] Comment on above: Performed By: #### C MP, LIPID #### [facility] [address] [place] [address] Dr. Taylor Ellis Protein [Mass/Vol] 7.6 g/dL Normal 6.4-8.2 [facility] Comment on above: Performed By: #### C MP, LIPID #### [facility] [address] [place] [address] Dr. Taylor Ellis Sodium [Moles/Vol] 138 mmol/L Normal 136-145 [facility] Comment on above: Performed By: #### C MP, LIPID #### [facility] [address] [address] [address] Taylor Ellis Urea nitrogen [Mass/Vol] 16.0 mg/dL Normal 7.0-18.0 [facility] Comment on above: Performed By: #### C MP, LIPID #### [facility] [address] [address] [address] Taylor Ellis Urea nitrogen/Creatinine [Mass ratio] 17.2 mg/mg Normal [facility] Comment on above: Performed By: #### C MP, LIPID #### [facility] [address] [place], [place] [address] Dr. Taylor Ellis Formson 01-29-2021 Forms [id number]: 127 Normal [facility] RAD - Ultrasound Reporton RAD - Ultrasound Report [id number]: 127 Normal [facility] RAD - Ultrasound Reporton RAD - Ultrasound Report [id number]:1 27 Normal [facility] RAD - Ultrasound Reporton RAD - Ultrasound Report [id number]: 127 Normal [facility] November 22, 2020 Adalid Wilkins M.D. [address] [place] [address] Re: OSMANY BYERSAN Date of : 1980 Thank you for your referral of Osmany Rich who was seen on consultation on 11/19/2020 for left axilla swollen lymph node. Testing has been ordered for further evaluation. I have enclosed my consultation note for your review. I will be happy to follow Osmany. Sincerely, Epifanio Johnson MD General Surgery Normal [facility] Ambulatory Clinical Summaryo n 11-19-2020 Ambulatory Clinical Summary {[id number] }[id number] Normal [facility] Physician Referralon 021 Physician Referral [id number]: 127 Normal [facility] Surgical Pathologyon 05-19-2019 [facility] Name OSMANY ARCE Pathologist: SOLITARIO LONDON MD Date of Procedure: 05/19/2019 Date Received: 05/19/2019 Date Reported 05/22/2019 Submitting Physician: SUSAN ALMANZA MD Location: [facility] Surg Other External # FINAL DIAGNOSIS A. [...] specimen is entirely submitted in one cassette. [facility] Gross dissection performed at: [facility] Department of Pathology [address] [place] [phone] B: Received in formalin, labeled with the patient's name, hospital number, and B , is tubular segment of gutierrez-white soft tissue measuring 1.5 x 0.3 x 0.3 cm. A pin point lumen is present. The specimen is entirely submitted in one cassette. [facility] Gross dissection performed at: [facility] Department of Pathology [address] [place] [phone] [facility]/05/19/2019 Normal [facility] Comment on above: Performed By: #### G SP #### [facility] [address] [place] [address] History and Physical - Surge ry > [...] Last Updated: 19-May-2019 07:05 by Susan Almanza) [facility] Operative Reports - [facility] 05-19-2019 Operative Reports - [facility] [address] [place] [address] Patient Name: GABRIEL. Ivette ARCE : 1980 Date of Service: 05/19/2019 Patient Location: [place] [address] Patient Type: O Surgeon: Susan Almanza MD Report Type: Operative Reports ATTENDING PHYSICIAN: Dr. Susan Almanza. HYDRATOR: None. PREOPERATIVE DIAGNOSES: 1. Elective sterilization. 2. [...] to 3 months' time for semen analysis. Ssuan Almanza MD EST TT: 05/22/2019 01:43 AM EST DICTATION NUMBER: [id number] [facility] JOB NUMBER: [id number] CC: Adalid Wilkins MD, [id number] Electronic Signatures: Susan Almanza) (Signed on 24-May-2019 17:12) Authored Unsigned, Draft (SYS GENERATED) (Entered on 22-May-2019 01:43) Entered Last Updated: 24-May-2019 17:12 by Susan Almanza) [facility] Patient Profile - Preop v2on 05-19-2019 Patient [...] Health: Weight in kg145.1 kilogram(s) Weight in wfv986 pound(s) Weight Methodstated Height in cm187.9 centimeter(s) [...] Advance Directive/DNRyes Advance Directive typeDurable Power of Network Desktop Support Specialist for Healthcare Durable Power of Network Desktop Support Specialist AvailabilityDPOA not available now During the past [...] material; verbal instruction Cultural Considerationsnone Developmental Considerationsnone Jew Considerationsnone Other learner availableno [place] RiskPatient location auto qualifies him/her for HIGH RISK. Are there any cultural, spiritual, methodist practices/values/needs that are important for us to [...] Updated: 19-May-2019 06:56 by Susanne Rogel) Normal [facility] Preop Checkliston 05-19-2019 Preop Checklist Preop Checklist: Preop Checklist: Arrival [id number] Arrival Time06:29 Procedure Typevasectomy Temperature C37.1 degrees C Temperature F98.7 degrees F Heart Rate73 beats per minute Respiratory Rate18 breath per minute Blood Pressure Btjklita011 mm/Hg Blood Pressure Nxfjnwnha34 mm/Hg NPO [id number] 21:00 ID Band Onyes Allergy Bandno known [...] Updated: 19-May-2019 06:59 by Susanne Rogel) Normal [facility] Vital Signs Date Time Vital Sign Value Performing Clinician Facility 01-27-2024 12:44-0400 Body height 190.5 cm Erika Viera DO Work Phone: [facility] 01-27-2024 12:44-0400 Body mass index (BMI) [Ratio] 50 kg/m2 Erika Asif DO Work Phone: [facility] 01-27-2024 12:44-0400 Body weight 181.44 kg Erika Asif DO Work Phone: [facility] 01-27-2024 12:44-0400 Diastolic blood pressure 88 mm[Hg] Erika Asif DO Work Phone: [facility] 01-27-2024 12:44-0400 Heart rate 88 /min Erika Asif DO Work Phone: [facility] 01-27-2024 12:44-0400 SaO2% (BldA) [Mass fraction] 97 % Erika Asif DO Work Phone: [facility] 01-27-2024 12:44-0400 Systolic blood pressure 136 mm[Hg] Erika Asif DO Work Phone: [facility] 08-31-2023 14:32-0400 Body height 190.5 cm [facility] 08-31-2023 14:32-0400 Body mass index (BMI) [Ratio] 46.1 kg/m2 [facility] 08-31-2023 14:32-0400 Body weight 167.37 kg [facility] 08-31-2023 14:32-0400 Diastolic blood pressure 86 mm[Hg] [facility] 08-31-2023 14:32-0400 Heart rate 74 /min [facility] 08-31-2023 14:32-0400 SaO2% (BldA) [Mass fraction] 98 % [facility] 08-31-2023 14:32-0400 Systolic blood pressure 144 mm[Hg] [facility] 07-09-2023 09:03-0500 Body height 190.5 cm [facility] 07-09-2023 09:03-0500 Body mass index (BMI) [Ratio] 46.6 kg/m2 [facility] 07-09-2023 09:03-0500 Body weight 169.18 kg [facility] 07-09-2023 09:03-0500 Diastolic blood pressure 80 mm[Hg] [facility] 07-09-2023 09:03-0500 Heart rate 97 /min [facility] 07-09-2023 09:03-0500 SaO2% (BldA) [Mass fraction] 95 % [facility] 07-09-2023 09:03-0500 Systolic blood pressure 124 mm[Hg] [facility] 02-19-2023 09:30-0400 Body height Margaret Lazo Other [facility] Other 02-19-2023 09:30-0400 Body mass index (BMI) [Ratio] 46.62 kg/m2 Margaret Lazo Other [facility] [employer] Other 02-19-2023 09:30-0400 Body weight 169.19 kg Margaret Lazo Other [employer] Other 02-19-2023 09:30-0400 Diastolic blood pressure 76 mm[Hg] Margaret Lazo Other [employer] Other 02-19-2023 09:30-0400 SaO2% (BldA) [Mass fraction] 97 % Margaret Lazo Other [employer] Other 02-19-2023 09:30-0400 Systolic blood pressure 132 mm[Hg] Margaret Lazo Other [facility] Other 02-04-2023 11:39-0400 Diastolic blood pressure 85 mm[Hg] Bubba Guillen LABORATORY COORDINATOR Work Phone: [facility] 02-04-2023 11:39-0400 Systolic blood pressure 130 mm[Hg] Bubba Guillen LABORATORY COORDINATOR Work Phone: [facility] 02-04-2023 11:01-0400 Body height 193 cm Bubba Guillen CNP Work Phone: [facility] 02-04-2023 11:01-0400 Body mass index (BMI) [Ratio] 46.41 kg/m2 Bubba Guillen CNP Work Phone: [facility] 02-04-2023 11:01-0400 Body temperature 97.2 [degF] Bubba Guillen CNP Work Phone: [facility] 02-04-2023 11:01-0400 Body weight 172.96 kg Bubba Guillen CNP Work Phone: [facility] 02-04-2023 11:01-0400 Heart rate 74 /min Bubba Guillen CNP Work Phone: [facility] 02-04-2023 11:01-0400 Respiratory rate 17 /min Bubba Guillen CNP Work Phone: [facility] 02-04-2023 11:01-0400 SaO2% (BldA) [Mass fraction] 95 % Bubba Guillen CNP Work Phone: [facility] 12-25-2022 08:30-0400 Body height Margaret Lazo Other [employer] Other 12-25-2022 08:30-0400 Body mass index (BMI) [Ratio] 46.24 kg/m2 Margaret Lazo Other [employer] Other 12-25-2022 08:30-0400 Body weight 167.83 kg Margaret Lazo Other [employer] Other 12-25-2022 08:30-0400 Diastolic blood pressure 80 mm[Hg] Margaret Lazo Other [employer] Other 12-25-2022 08:30-0400 Systolic blood pressure 128 mm[Hg] Margaret Lazo Other [employer] Other Encounters Encounter Date Encounter Type Care Provider Facility Start: 01-27-2024 End: 01-27-2024 Bamboo flowsheet Erika Viera DO Work Phone: [facility] Start: 01-27-2024 End: 01-27-2024 Bamboo flowsheet Erika Asif DO Work Phone: [facility] Start: 01-27-2024 End: 01-27-2024 Office consultation new/estab patient 60 min Erika Viera DO Work Phone: [facility] Comment on above: MAIKOL (obstructive sle ep apnea); Hypoxia; Sleep deprivation; Inadequate sleep hygiene; Class 3 severe obesity due to excess calories with body mass index (BMI) of 50.0 to 59.9 in adult, unspecified whether serious comorbidity present ([facility]); Hypersomnia; Snoring Start: 01-27-2024 End: 01-27-2024 ambulatory ERIKA VIERA Not Available Start: 08-31-2023 End: 08-31-2023 ambulatory [facility] Work Phone: Start: 08-31-2023 End: 08-31-2023 Patient encounter procedure [facility] Work Phone: Start: 07-09-2023 End: 07-09-2023 ambulatory [facility] Work Phone: Start: 07-09-2023 End: 07-09-2023 Patient encounter procedure [facility] Work Phone: Start: 07-05-2023 End: 07-05-2023 ambulatory Margaret Lazo Other [employer] Other Start: 07-05-2023 Telephone encounter Margaret Bermudez her [facility] Start: 06-25-2023 End: 06-25-2023 Patient encounter procedure [facility]- Start: 05-28-2023 End: 05-28-2023 ambulatory Margaret Violet Other [employer] Other Start: 05-28-2023 Telephone encounter Margaret Albaradojuanis her [facility] Start: 05-04-2023 End: 05-04-2023 ambulatory Margaret Lazo Other [employer] Other Start: 05-04-2023 Office outpatient vi sit 15 minutes Margaret Lazo [facility] Start: 05-04-2023 Patient encounter procedure [facility]- Start: 03-10-2023 End: 03-10-2023 ambulatory Margaret Lazo Other [employer] Other Start: 03-10-2023 Telephone encounter Margaret Valdivialuigi her [facility] [employer] [facility] [facility] Start: 02-19-2023 End: 02-19-2023 ambulatory Margaret Lazo Other [employer] Other Start: 02-19-2023 Office outpatient vi sit 15 minutes Margaret Lazo [facility] Start: 02-04-2023 End: 02-04-2023 Office outpatient new 30 minutes Bubba Guillen LABORATORY COORDINATOR Work Phone: [facility] [place] Comment on above: Laceration of palm, left, initial encounter (Primary Dx) Start: 02-04-2023 End: 02-04-2023 ambulatory MARGARET LAZO [facility] Start: 12-25-2022 End: 12-25-2022 ambulatory Margaret Lazo Other [employer] Other Start: 12-25-2022 Office outpatient ne w 30 minutes Margaret Lazo [facility] Start: 10-22-[address] ADALID WILKINS . [...] 04/12/2024 1:15 PM EST Office Visit [facility] [address] [place] [address] Erika Viera DO [address] [place] [address] [facility] Start: 01-27-2024 End: 01-27-2024 Patient encounter procedure 01/27/2024 12:45 PM EDT Office Visit [facility] [address] [place] [address] Erika Viera DO [address] [place] [address] [facility] Comment on above: Arrived Start: 2024 Influenza vaccination Influenza Vacc ine (#1) [facility] Start: 01-22-2023 Influenza vaccination Sequenti al Influenza Vaccine (#1) [facility] Start: 11-18-2022 Hemoglobin A1c measurement A1C [facility] Start: 12-06-2020 COVID-19 Vaccine (3 - Pfizer series) COVID-19 Vaccine (3 - Pfizer series) [facility] Start: 06-08-2020 Urine screening for protein Urine Microalbumin [facility] Start: 02-24-2013 Pneumococcal Vaccine : Ped or At-Risk (2 - PCV) Pneumococcal Vaccine: Ped or At-Risk (2 - PCV) [facility] Start: 01-22-1998 Hepatitis C screening Hepatitis C Sc reening [facility] Start: 01-22-1995 HIV screening HIV Screening [facility] Start: 1992 Depression screening using PHQ-9 (Patient Health Questionnaire 9) score Depression Screening (PHQ-2/9) [facility] Start: 01-22-1990 Diabetic foot examination Foot Exam [facility] Start: 01-22-1990 Glaucoma screening Diabetic Eye Exam [facility] Start: 01-22-1983 History and physical examination, annual for health maintenance Wellness Visit [facility] Start: 1980 Tetanus vaccination Tetanus: Every 1 0yrs [facility] Comprehensive metabo lic 2000 panel - Serum or Plasma [facility] Immunizations Immunization Date Immunization Notes Care Provider Fa cility 04-18-2023 influenza virus vacc ine, unspecified formulation Erika Viera DO Work Phone: [facility] Payers Date Payer Category Payer Unknown BCBS BCBS [id number] 2022-Present [phone] [address] [place] [address] [id number] 1980 Unknown [id number] [id number]. 2.593 1980 Unknown [id number] [id number]. 2.593 1980 Unknown [id number] 2.16.840.1.081247.3.579. 2.593 1980 Unknown [id number] 2.16.840.1.798669.3.579. 2.593 1980 Unknown [id number] 2.16.840.1.892977.3.579. 2.593 1980 Unknown [id number] 2.16.840.1.504289.3.579. 2.593 1980 Unknown [id number] 2.16.840.1.195017.3.579. 2.903 1980 Unknown [id number] 2.16.840.1.225648.3.579. 2.1259 1959 Self-pay 1959 Unknown [id number] 1959 Unknown [id number] Private Health Insurance [facility] [id number] Unknown [id number] Worker's Compensation [employer] PEND[employer] WORK[employer] COMPENSATION [id number] Effective for all dates [address] [place] [address] [id number] Worker's Compensation [id number] Social History Date Type Detail Facility Start: 01-25-2024 Sex Assigned At [facility] Other Start: 05-24-1997 End: 01-25-2024 Tobacco smoking status [facility] Smokes tobacco daily [facility] Start: 05-24-1997 History of tobacco use Cigarette Smo ker [facility] Start: 02-04-2023 Tobacco use and exposure Smokeless tobacco non-user [facility] Start: 1980 Sex Assigned At Not on file [facility] Start: 06-24-2023 End: 08-31-2023 Tobacco smoking status [facility] Smoker (finding) [facility] Start: 1980 Sex Assigned At Male F [facility] Start: 01-25-2024 Cigarettes smoked current (pack [...] with his machine. He needs supplies from [facility] [place]. Sleep ND Patient Symptoms Snores: yes Wakes [...] in adult, unspecified whether serious comorbidity present ([facility]) Hypersomnia Snoring 44 year old male with [...] was counseled on the risks of stroke, IA, and sudden with MAIKOL, along with the [...] clinic: 2 months documented in this encounter [facility] 07-05-2023 Evaluation note Encounter Date Diagnosis Assessment Notes Jun, Primary hypertension (ICD-10 - I10) Jun, Mixed hyperlipidemia (ICD-10 - E78.2) [facility] Other 12-12-2023 Evaluation note* Encounter Date Diagnosis [...] spent with patient was approximately 7 minutes. [facility] Other 09-29-2023 Evaluation note* Encounter Date Diagnosis Assessment Notes Treatment Notes Treatment Clinical Notes Jan, Current moderate episode of major depressive disorder without prior episode (ICD-10 - F32.1) Referral placed per pt request for family health services. [facility] Other 09-14-2023 Instructions* Patient Instructions* Bubba Guillen CNP - 02/04/2023 12:01 PM EDT Plan for laceration: Cephalexin antibiotic; start taking today for prevention of infection. See after visit summary for details of treatment of laceration/sutures at home. [phone] as soon as possible to make an appointment for follow up. [facility] provides work r elated injury and illness care. See [facility] paperwork for restrictions and return to work date. [address], [address] [address] 8am-430pm Wednesday through Wednesday Recommended follow up date with [facility] is as soon as possible. * Attachments The following attachments cannot be sent through Care Everywhere. * Hand Laceration: Stitches (Vietnamese) documented in this [id number] History of Present illness Narrative* Bubba Guillen CNP - 02/04/2023 11:34 AM EDTAssociated Order(s): Laceration repair Post-Procedure Diagnose(s): Laceration of palm, left, initial encounter Images from the original note were not included. Patient Name: [facility] Urgent Care Location: [place] Arce [address] [facility] [address] Date Of : Date Of Visit: 1980 02/04/2023 MRN# Provider: [id number] Bubba Guillen CNP Chief Complaint Patient presents with Laceration Left hand palmar surface near 1st digit Assessment & Plan 1. Laceration of palm, left, initial encounter cephALEXin (KEFLEX) 500 MG capsule Ambulatory referral to [facility] No follow-ups on file. Medical [...] of treatment of laceration/sutures at home. [facility] [phone] as soon as possible to make an appointment for follow up. [employer] provides work r elated injury and illness care. See [facility] paperwork for restrictions and return to work date. [employer], [address] [place] [address] 8am-430pm Wednesday through Wednesday Recommended follow up date with [facility] is as soon as possible. [...] Encounter Procedures Laceration repair Ambulatory referral to [facility] Medication List At End Of Visit [...] of treatment of laceration/sutures at home. [facility] [phone] as soon as possible to make an appointment for follow up. [facility] provides work r elated injury and illness care. See [facility] paperwork for restrictions and return to work date. [facility] [address] [facility], [address] [place] [address] 8am-430pm Wednesday through Wednesday Recommended follow up date with Work Health is as soon as possible. documented in this [id number] Evaluation note* Encounter Date Diagnosis Assessment Notes [...] and willingness to quit at each appointment. [facility] Other 2023 NotePROCEDURE: XR HAND LT 2 [...] Electronically authenticated by: CHRISTINE VELARDE Date: 2022-06-15 15:02[facility]07-01-2021 NoteChief Complaint referral for swollen lymph node [...] [id number] vax 10/12/19 (more content not included)... [facility]:Result Comment: Electronically Signed By: JAKE JEFFERS, Epifanio Macdonald\Date and Time Signed: 11/21/20 16:42 EDT Evaluation note* Diagnosis Laceration of palm, left, initial encounter- Primary documented in this encounter [facility] Other Evaluation note* Diagnosis Onset Date Resolution Status Arthritis acute Chronic pain acute Current moderate episode of major depressive disorder without prior episode acute Current smoker acute Mixed hyperlipidemia acute Neuropathy acute Obstructive sleep apnea acut e Primary hypertension acute Primary osteoarthritis, left wrist acute Primary osteoarthritis, right wrist acute [facility] Work Phone: Evaluation note* Diagnosis MAIKOL (obstructive sleep apnea) Obstructive sleep apnea (adult) (pediatric) Hypoxia Hypoxemia Sleep deprivation Problems related to lack of adequate sleep Inadequate sleep hygiene 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 Class 3 severe obesity due to excess calories with body mass index (BMI) of 50.0 to 59.9 in adult, unspecified whether serious comorbidity present ([facility]) Hypersomnia Hypersomnia, unspecified Snoring Other dyspnea and respiratory abnormality documented [facility] N[facility]ative - Reported* Type Description Date Medical History Hypertension Medical History Hyperlipidemia Medical History Arthritis-- wrist and upper back Medical History sleep apnea Surgical History RIGHT HAND Surgical History ankle surgery right 2021 [facility] Other Reason for referral (narrative)* Reason would like a re [facility] [place] Diagnosis 1 Current moderate epi sode of major depressive disorder without prior episode (F32.1) Referral Organization [facility] Referring Provider First Name Margaret Referring Provider Last Name Violet Referring Provider Specialty Nurse Pract emilee Referred Organization [facility] Referred Address [address] [place], [place],[address] Referred Provider Specialty Psychiatry Referral Priority Routine General Notes Janeth Beaulieu 02:18:57 PM >received today, waiting for notes to be locked to fax Clinical Notes f: [id number] [facility] Other Summary Purpose Family History Relationship Condition [...] Procedure: Bilateral vasectomy Surgeon: susan almanza Resident/Fellow/Other Toll Patrolman: none Anesthesia: General I.V. Fluids: pAR Estimated [...] of palm, left, initial encounter Bubba Guillen, [address] [place] [address] [address] Referral ID Status Reason Start Date Expiration Date V isits Requested Visits Authorized [id number] Authorized 02/05/2023 02/05/2024 1 1 Chief Complaint [...] DATE CREATED AUTHOR AUTHOR'S ORGANIZ ATION 05/25/2019 [facility] DATE CREATED AUTHOR AUTHOR'S ORGANIZ ATION 01/30/2021 [facility] DATE CREATED AUTHOR AUTHOR'S ORGANIZ ATION 10/30/2022 [facility] DATE CREATED AUTHOR AUTHOR'S ORGANIZ ATION 02/06/2023 [facility] DATE CREATED AUTHOR AUTHOR'S ORGANIZ ATION 01/29/2024 [facility] EPIC REASON FOR VISIT (unrecogniz ed section and content) Reason Comments Laceration Left hand palmar debra face near 1st digit Reason Comments Sleep Apnea Care Teams (unrecognized sec tion and content) Drafter Se[employer]ograph Relationship Specialty Start Date End Date Margaret Lazo CNP [address] [place] [address] PCP - General Nurse Practitioner 02/04/23 Team Status: Active Member Role Status Dates Margaret Lazo APRN PASSENGER CONDUCTOR-C Primary Care Provider Active Team Status: Active Member Role Status Dates Provider Conversion Attending Provider Active St art: May 04, 2023 Team Status: Inactive Member Role Status Dates Margaret Lazo APRN PASSENGER CONDUCTOREliot Attending Provider Act jason Start: June 25, 2023 End: June 25, 2023 Team Status: Inactive Member Role Status Dates Margaret Lazo APRN PASSENGER CONDUCTOR-Janice Primary Care Provider, Attending Provider Active Start: July 09, 2023 End: July 09, 2023 Team Status: Inactive Member Role Status Dates Margaret Lazo APRN PASSENGER CONDUCTOR-Janice Primary Care Provider, Attending Provider Active Start: August 31, 2023 End: August 31, 2023 Dra[employer] Relationship Specialty Start Date End Date Branden Garcia MD [address] [place] [address] PCP - General Internal Medicine 04/21/23 Drafter Seismograph Relationship Specialty Start Date End Date Branden Garcia MD [address] [place] [address] PCP - General Internal Medicine [...] BE BASED ON THE PRIMARY CLINICAL RECORDS. [facility]. provides no warranty or guarantee of the accuracy or completeness of information in this document.
[2024-07-19 10:06] LABS: Basophils Percent Auto 0.4 % (0.2-2.0); Eosinophils Absolute Auto 0.2 10^3/uL (0.0-0.7); Eosinophils Percent Auto 2.7 % (0.9-7.0); Hematocrit 43.8 % (42.0-54.0); Immature Granulocytes Abs Auto 0.02 10^3/uL (0.00-0.03); Immature Granulocytes Pct Auto 0.2 % (0.0-0.5); Lymphocytes Absolute Auto 2.3 10^3/uL (1.2-3.8); Lymphocytes Percent Auto 27.7 % (20.5-60.0); Mean Corpuscular HGB Conc 34.2 g/dL (29.9-35.2); Mean Corpuscular Hemoglobin 29.8 pg (25.9-34.0); Mean Corpuscular Volume 86.9 fL (80.0-94.0); Mean Platelet Volume 9.9 fL (9.5-13.5); Monocytes Absolute Auto 0.5 10^3/uL (0.3-0.8); Neutrophils Absolute Auto 5.3 10^3/uL (1.4-6.5); Platelet Count 219 10^3/uL (150-450); Red Blood Count 5.04 10^6/uL (4.70-6.10); Red Cell Distribution Width 12.6 % (11.0-15.0); White Blood Count 8.4 10^3/uL (4.0-11.0)
[2024-07-19 11:53] LABS: Creatinine Urine Random 201.02 mg/dL (20.00-300.00); Microalbum Creatinine Ratio Ur 6.4 mg/g (0.0-29.9); Microalbumin Urine Random 1.3 mg/dL (<=30.0)
[2024-07-19 12:33] LABS: Alanine Aminotransferase 50 U/L (16-63); Albumin Globulin Ratio 1.2; Albumin Level 3.8 g/dL (3.4-5.0); Alkaline Phosphatase 43 U/L (46-116); Aspartate Amino Transferase 20 U/L (15-37); BUN Creatinine Ratio 13.7; Bilirubin Total 0.5 mg/dL (0.2-1.0); Calcium 8.8 mg/dL (8.5-10.1); Carbon Dioxide 28.2 mmol/L (21.0-32.0); Chloride 104 mmol/L (98-107); Chol HDL Ratio 3.5; Cholesterol 105 mg/dL (<=200); Estimated GFR (African America >60 (>=60 mL/min/1.73m^2); Estimated GFR (Non-African Ame >60 (>=60 mL/min/1.73m^2); Globulin 3.1 g/dL; Glucose 146 mg/dL (74-106); HDL Cholesterol 30 mg/dL (40-60); Potassium 4.2 mmol/L (3.5-5.1); Sodium 142 mmol/L (136-145); Total Protein 6.9 g/dL (6.4-8.2); Triglycerides 192 mg/dL (<=150); VLDL CHOLESTEROL 38.4 mg/dL
== END 2024-07-19 09:30 | disposition home or self-care (01) ==
LOC: LAB 09:30
PROVIDERS: PCP Nurse Practitioner Family; Visit Provider Nurse Practitioner Family
DX: I10 Essential (primary) hypertension (principal); E11.9 Type 2 diabetes mellitus without complications
CPT/HCPCS: 36415; 80053; 80061; 82043; 82570; 85025

== ENCOUNTER 2024-11-07 14:09 | Outpatient (OUT) | payer OTHER, SELFPAY ==
--- NOTE | 2024-11-07 14:39 | MR_ITS ---
[address] [address] Patient Name: NELY KLEIN MRN: [id number] date: 1980 Sex: M Assigned Patient Location: MRI Current Patient Location: MRI Accession/Order Number: [id number] Exam Date: 11/07/2024 22:59 Report Date: 11/07/2024 23:14 At the request of: NON-STAFF PHYSICIAN Procedure: MR ankle RT wo con MR ankle RT wo con 11/07/2024 3:36 PM SIGNS AND SYMPTOMS: Sprain of other ligament of right ankle, initial encounter. PROTOCOL: Multiplanar multisequence MR images of the right ankle without contrast COMPARISON: 06/28/2024 FINDINGS: Alignment: Normal. Fluid: Tibiotalar: No joint effusion. Subtalar: No joint effusion. Medial: Medial malleolus: Normal. Tendons: Posterior tibial tendon: Intact. Flexor digitorum longus: Intact. Flexor hallucis longus: Intact. Ligaments: Deltoid ligament complex - superficial: Intact. Deltoid ligament complex - deep: Intact. Spring (plantar calcaneo-navicular) ligament: Intact. Lateral: Lateral malleolus: Normal. Retromalleolar groove: Normal. Tendons: Peroneus longus: There is thickening and edema within the peroneus longus suggesting an intrasubstance tear.. Peroneus brevis: There is a partial-thickness near complete tear of the peroneus brevis tendon. Peroneal retinaculum: Intact. Ligaments: Anterior inferior tibiofibular (syndesmosis): Intact. Posterior inferior tibiofibular (syndesmosis): Intact. Anterior talofibular ligament: Intact. Calcaneofibular ligament: Intact. Posterior talofibular ligament: Intact. Posterior: Posterior talus: Normal. Intermalleolar ligament: Intact. Achilles tendon: Intact. Plantar fascia: Intact. Anterior: Tendons: Anterior tibial tendon: Intact. Extensor hallucis longus: Intact. Extensor digitorum longus: Intact. Tibiotalar joint: Intact. Subtalar joint: Intact. Bones (other than subarticular marrow): Normal. Muscles: Edema is noted in the peroneus musculature. Tarsal tunnel: Normal. Sinus tarsi: Normal. MR/MR ankle RT wo con IMPRESSION: There is thickening and edema within the peroneus longus suggesting an intrasubstance tear.. There is a partial-thickness near complete tear of the peroneus brevis tendon. Edema is noted in the peroneus musculature. The ankle is otherwise structurally intact. Impression dictated by: Cullen Arvizu M.D. 11/07/2024 11:14 PM Dictation Location: [place] [address] Electronically authenticated by: [id number] Y Date: 11/07/2024 23:14
== END 2024-11-07 14:10 | disposition home or self-care (01) ==
PROVIDERS: PCP Nurse Practitioner Family
DX: S93.491A Sprain of other ligament of right ankle, initial encounter (principal); S96.811A Strain of other specified muscles and tendons at ankle and foot level, right foot, initial encounter
CPT/HCPCS: 73721